=== PATIENT | male | born 1940 | race Caucasian/White ===

== ENCOUNTER 2016-09-26 04:06 | Inpatient (IN) | payer MEDICARE, OTHER ==
[2016-09-25 20:00] VITALS: PULSE 79
[~2016-09-26] VITALS: Ht 175.3 cm; Wt 76.1 kg
[2016-09-26] VITALS (19 sets, daily range): BP systolic 98–150; BP diastolic 50–85; PULSE 79–112; RESP 15–23; TEMP 96–98.6; O2SAT 94–99
[~2016-09-26 04:06] MED LIST: AMBI5TAB PO; CARD4TAB2 PO; GABA300 PO; GLUC1KIT IM; HUMALOG SQ; JANU50TA5 PO; LANTUSP SQ; LORA-474 PO; NEXI40CA PO; NIAC500 PO; STAR60TA PO; TOPR25TA2 PO; TRIL150T PO; ZOCO40TA PO
[2016-09-26] MEDS ORDERED: SODIUM CHLOR 0.9% 1000 ML INJ 1,000 ML IV ONE (04:14)
[2016-09-26] MEDS ORDERED: SODIUM CHLORIDE 0.9% FLUSH 5 ML FLUSH IVF PRN (04:15)
--- NOTE | 2016-09-26 04:20 | PD ---
HPI Chief Complaint: Fall Time Seen by Provider: 04:14 Travel History International Travel<30 days: No Contact w/Intl Traveler<30days: No Traveled to known affect area: No History of Present Illness HPI The patient is a 76-year-old male who presents emergency department via EMS after being found on the ground by his significant other. EMS states they received a call that the patient was found on the side of the bed, lying on the floor, when they arrived. EMS states that they checked an Accu-Chek, the glucometer read "high ", and the patient received 2 L of IV fluids in route to the hospital. The patient apparently has a history of dementia and is currently at baseline according to the patient's significant other, according to EMS report. Upon arrival the patient is a somewhat poor historian, is able to tell me as name and date of , but is unable to tell me his current location. The patient denies any physical complaints. Denies any headache, neck pain, chest, shortness breath, nausea, vomiting, or abdominal pain. PFSH Past Medical History Depression: Yes Cancer: Yes (SKIN) Coronary Artery Disease: Yes Diabetes: Yes Glaucoma: No Hepatitis: No Hiatal Hernia: Yes Hypertension: Yes Thyroid Disease: No Ulcer: Yes Past Surgical History Abdominal Surgery: Yes (COLON RESECTION) Eye Surgery: Yes (CATARACT SX BOTH EYES) Pacemaker: No Social History Alcohol Use: No Tobacco Use: Yes (QUIT LONG AGO) Allergies-Medications (Allergen,Severity, Reaction): Coded Allergies: Contrast Media (Verified Allergy, Severe, DYSPNEA, 09/26/16) Iohexol (OMNIPAQUE) (Verified Allergy, Severe, ANAPHYLAXIS, 09/26/16) Keflex (Verified Allergy, Severe, RASH,ITCHING, 09/26/16) Tobradex (Verified Allergy, Severe, UNKNOWN, 09/26/16) Iodine (Unverified Allergy, Unknown, NOT SURE , 09/26/16) Reported Meds & Prescriptions Reported Meds & Active Scripts Active Reported Niaspan Er (Niacin) 500 Mg Capcr 500 Mg PO DAILY Ambien (Zolpidem Tartrate) 5 Mg Tab 5 Mg PO HS Ativan (Lorazepam) 1 Mg Tab 1 Mg PO BIDPRN Glucagon 1 Mg/Ml Inj 1 Mg IM PRN Janumet 50/500 (Sitagliptin Phosphate/Metformin HCl) 1 Tab Tab 1 Tab PO BIDPRN ADMINISTER WITH MEALS Starlix (Nateglinide) 60 Mg Tab 60 Mg PO BIDPRN Nexium (Esomeprazole) 40 Mg Cap 40 Mg PO DAILY Humalog (Insulin Human Lispro) 100 Units/Ml Inj 12 Units SQ BEFORE MEALS Lantus (Insulin Glargine) 100 Units/Ml Inj 44 Units SQ HS Cardura (Doxazosin Mesylate) 4 Mg Tab 4 Mg PO HS Zocor (Simvastatin) 40 Mg Tab 40 Mg PO HS Neurontin (Gabapentin) 300 Mg Cap 300 Mg PO HS Trileptal (Oxcarbazepine) 150 Mg Tab 150 Mg PO BID Toprol Xl (Metoprolol Succinate) 25 Mg Tabcr 25 Mg PO DAILY Review of Systems ROS Limitations: Clinical Condition, Poor Historian Except as stated in HPI: all other systems reviewed are Neg General / Constitutional: No: Fever HENT: No: Headaches, Neck Pain Cardiovascular: No: Chest Pain or Discomfort Respiratory: No: Shortness of Breath Gastrointestinal: No: Nausea, Vomiting, Abdominal Pain Genitourinary: Positive: Incontinence (incontinence according to EMS which is chronic) Neurologic: No: Headache, Change in Mentation (baseline according to EMS, per the significant other's report) Physical Exam Narrative GENERAL: Awake, alert, 76-year-old male appears his stated age is in no acute respiratory distress. SKIN: Warm and dry. The patient has superficial abrasion over the lateral aspect left elbow. No subcutaneous tissue involvement underneath upon inspection. HEAD: Atraumatic. Normocephalic. EYES: No injection or drainage. ENT: No nasal bleeding or discharge. Dry mucous membranes. No visible dentition. NECK: Trachea midline. No JVD. No tenderness of the cervical vertebrae. CARDIOVASCULAR: Regular, tachycardic with a heart rate of 110. RESPIRATORY: No accessory muscle use. Clear to auscultation. Breath sounds equal bilaterally. GASTROINTESTINAL: Abdomen soft, non-tender, nondistended. No rebound tenderness. MUSCULOSKELETAL: No obvious deformities. No clubbing. No cyanosis. No edema. Moves all 4 extremities. NEUROLOGICAL: Awake and alert. No obvious cranial nerve deficits. Motor grossly within normal limits. Normal speech. Patient follows simple commands, no drift of the upper or lower extremities. Patient is oriented to person and date of , but not current location, month, or year. PSYCHIATRIC: Appears demented. Data Data Last Documented VS Vital Signs Date Time Temp Pulse Resp B/P Pulse Ox O2 Delivery O2 Flow Rate FiO2 09/26/16 05:01 18 97 Room Air 09/26/16 04:14 98.6 109 142/75 Orders Electrocardiogram (09/26/16 04:14) Complete Blood Count With Diff (09/26/16 04:14) Comprehensive Metabolic Panel (09/26/16 04:14) Magnesium (Mg) (09/26/16 04:14) Beta Hydroxybutyrate (Acetone) (09/26/16 04:14) Lactic Acid (09/26/16 04:14) Urinalysis - C+S If Indicated (09/26/16 04:14) Chest, Single Ap (09/26/16 04:14) Blood Gas Venous (Vbg) (09/26/16 04:14) Blood Glucose (09/26/16 04:14) Blood Glucose (09/26/16 05:14) Ecg Monitoring (09/26/16 04:14) Iv Access Insert/Monitor (09/26/16 04:14) Oximetry (09/26/16 04:14) NPO (09/26/16 04:14) Sodium Chloride 0.9% Flush (Ns Flush) (09/26/16 04:15) Sodium Chlor 0.9% 1000 Ml Inj (Ns 1000 M (09/26/16 04:14) Troponin I (09/26/16 04:14) Ct Brain W/O Iv Contrast(Rout) (09/26/16 ) Tetanus/Diphtheria Tox Adult (Tetanus/Di (09/26/16 04:45) Blood Culture (09/26/16 05:02) Cath For Specimen (09/26/16 05:13) Mental Health Assistant / Telemetry DELORIS.Q8H (09/26/16 05:28) ^ Insert Iv (09/26/16 05:28) Diet Npo (09/26/16 Breakfast) Sodium Chlor 0.9% 1000 Ml Inj (Ns 1000 M (09/26/16 05:28) Dext 5%-Nacl 0.9% 1000 Ml Inj (D5w-Ns 10 (09/26/16 05:28) Insulin Human Regular Inj (Novolin R Inj (09/26/16 05:30) Insulin Regular (Iv Infusion) (Novolin R (09/26/16 05:30) Potassium Chlor 40 Meq Premix (Kcl 40 Me (09/26/16 05:30) Potassium Chlor 40 Meq Premix (Kcl 40 Me (09/26/16 05:30) Potassium Chlor 20 Meq Premix (Kcl 20 Me (09/26/16 05:30) Potassium Chlor 20 Meq Premix (Kcl 20 Me (09/26/16 05:30) Potassium Chlor 20 Meq Premix (Kcl 20 Me (09/26/16 05:30) Potassium Chlor 20 Meq Premix (Kcl 20 Me (09/26/16 05:30) Potassium Chlor 20 Meq Premix (Kcl 20 Me (09/26/16 05:30) Potassium Chlor 20 Meq Premix (Kcl 20 Me (09/26/16 05:30) Sodium Bicarbonate 8.4% Inj (Sodium Bica (09/26/16 05:30) Sodium Bicarbonate 8.4% Inj (Sodium Bica (09/26/16 05:30) Sodium Phosphate Inj (Sodium Phosphate I (09/26/16 05:30) Hemoglobin (Hgb) A1c (09/26/16 05:28) Basic Metabolic Panel (Bmp) (09/26/16 10:28) Basic Metabolic Panel (Bmp) (09/26/16 16:28) Basic Metabolic Panel (Bmp) (09/26/16 22:28) Basic Metabolic Panel (Bmp) (09/27/16 04:28) Magnesium (Mg) (09/26/16 10:28) Magnesium (Mg) (09/26/16 16:28) Magnesium (Mg) (09/26/16 22:28) Magnesium (Mg) (09/27/16 04:28) Phosphorus (Po4) (09/26/16 10:28) Phosphorus (Po4) (09/26/16 16:28) Phosphorus (Po4) (09/26/16 22:28) Phosphorus (Po4) (09/27/16 04:28) Beta Hydroxybutyrate (Acetone) (09/26/16 16:28) Beta Hydroxybutyrate (Acetone) (09/27/16 04:28) Labs Laboratory Tests Test 09/26/16 09/26/16 04:25 04:35 White Blood Count 19.7 TH/MM3 Red Blood Count 5.13 MIL/MM3 Hemoglobin 14.1 GM/DL Hematocrit 44.5 % Mean Corpuscular Volume 86.6 FL Mean Corpuscular Hemoglobin 27.4 PG Mean Corpuscular Hemoglobin 31.7 % Concent Red Cell Distribution Width 14.1 % Platelet Count 350 TH/MM3 Mean Platelet Volume 8.5 FL Neutrophils (%) (Auto) 91.7 % Lymphocytes (%) (Auto) 4.2 % Monocytes (%) (Auto) 3.9 % Eosinophils (%) (Auto) 0.0 % Basophils (%) (Auto) 0.2 % Neutrophils # (Auto) 18.1 TH/MM3 Lymphocytes # (Auto) 0.8 TH/MM3 Monocytes # (Auto) 0.8 TH/MM3 Eosinophils # (Auto) 0.0 TH/MM3 Basophils # (Auto) 0.0 TH/MM3 CBC Comment DIFF FINAL Differential Comment Sodium Level 133 MEQ/L Potassium Level 5.2 MEQ/L Chloride Level 97 MEQ/L Carbon Dioxide Level 12.6 MEQ/L Anion Gap 23 MEQ/L Blood Urea Nitrogen 60 MG/DL Creatinine 1.90 MG/DL Estimat Glomerular Filtration 34 ML/MIN Rate Random Glucose 846 MG/DL Lactic Acid Level 5.0 mmol/L Calcium Level 9.2 MG/DL Magnesium Level 2.6 MG/DL Total Bilirubin 0.8 MG/DL Aspartate Amino Transf 52 U/L (AST/SGOT) Alanine Aminotransferase 31 U/L (ALT/SGPT) Alkaline Phosphatase 167 U/L Troponin I 0.03 NG/ML Total Protein 8.2 GM/DL Albumin 3.9 GM/DL B-Hydroxybutyrate 6.40 MMOL/L Blood Gas Puncture Site Blood Gas Patient Temperature 98.6 Venous Blood pH 7.20 Venous Blood Partial Pressure 34 mmHg CO2 Venous Blood Partial Pressure 41 mmHg O2 Venous Blood HCO3 13 mmol/L Venous Blood Oxygen Saturation 61 % Venous Blood Oxygen Content 11.4 Vol % Venous Blood Base Excess -13.9 mmol/L Oxygen Delivery Device ROOM AIR Blood Gas Inspired Oxygen 21 % [facility] Medical Decision Making Medical Screen Exam Complete: Yes Emergency Medical Condition: Yes Medical Record Reviewed: Yes Interpretation(s) EKG reveals sinus tachycardia with a heart rate of 106. Unifocal PVC. VBG reveals a pH is 7.197 with PCO2 33.7, bicarbonate 12.6. Base excess is - 13.9. CT of the head reveals no acute disease Chest x-ray reveals no acute disease Last Impressions Chest X-Ray 09/26/16 0414 Signed Impressions: Service Date/Time: Monday, September 26, 2016 04:25 - CONCLUSION: No acute disease. Jorge Asher MD Head CT 09/26/16 0000 Signed Impressions: Service Date/Time: Monday, September 26, 2016 04:42 - CONCLUSION: No acute disease. Jorge Asher MD Laboratory Tests Test 09/26/16 09/26/16 04:25 04:35 White Blood Count 19.7 TH/MM3 Red Blood Count 5.13 MIL/MM3 Hemoglobin 14.1 GM/DL Hematocrit 44.5 % Mean Corpuscular Volume 86.6 FL Mean Corpuscular Hemoglobin 27.4 PG Mean Corpuscular Hemoglobin 31.7 % Concent Red Cell Distribution Width 14.1 % Platelet Count 350 TH/MM3 Mean Platelet Volume 8.5 FL Neutrophils (%) (Auto) 91.7 % Lymphocytes (%) (Auto) 4.2 % Monocytes (%) (Auto) 3.9 % Eosinophils (%) (Auto) 0.0 % Basophils (%) (Auto) 0.2 % Neutrophils # (Auto) 18.1 TH/MM3 Lymphocytes # (Auto) 0.8 TH/MM3 Monocytes # (Auto) 0.8 TH/MM3 Eosinophils # (Auto) 0.0 TH/MM3 Basophils # (Auto) 0.0 TH/MM3 CBC Comment DIFF FINAL Differential Comment Sodium Level 133 MEQ/L Potassium Level 5.2 MEQ/L Chloride Level 97 MEQ/L Carbon Dioxide Level 12.6 MEQ/L Anion Gap 23 MEQ/L Blood Urea Nitrogen 60 MG/DL Creatinine 1.90 MG/DL Estimat Glomerular Filtration 34 ML/MIN Rate Random Glucose 846 MG/DL Lactic Acid Level 5.0 mmol/L Calcium Level 9.2 MG/DL Magnesium Level 2.6 MG/DL Total Bilirubin 0.8 MG/DL Aspartate Amino Transf 52 U/L (AST/SGOT) Alanine Aminotransferase 31 U/L (ALT/SGPT) Alkaline Phosphatase 167 U/L Troponin I 0.03 NG/ML Total Protein 8.2 GM/DL Albumin 3.9 GM/DL B-Hydroxybutyrate 6.40 MMOL/L Blood Gas Puncture Site Blood Gas Patient Temperature 98.6 Venous Blood pH 7.20 Venous Blood Partial Pressure 34 mmHg CO2 Venous Blood Partial Pressure 41 mmHg O2 Venous Blood HCO3 13 mmol/L Venous Blood Oxygen Saturation 61 % Venous Blood Oxygen Content 11.4 Vol % Venous Blood Base Excess -13.9 mmol/L Oxygen Delivery Device ROOM AIR Blood Gas Inspired Oxygen 21 % Differential Diagnosis Differential diagnoses includes dementia, delirium, inability care for self, dehydration, hyperglycemia, DKA, electrolyte abnormality, subdural hemorrhage, pneumonia, UTI, STEMI. Narrative Course IV was established, labs are drawn and sent, and the patient was placed on cardiac telemetry monitoring and continuous pulse oximetry monitoring. The patient received 2 L of IV fluids by EMS prior to arrival, therefore, was administered 1 more liter of IV fluids while placed on cardiac telemetry monitoring. Bedside Accu-Chek was obtained. VBG was sent to lab. CT of the brain was ordered to rule out subdural hemorrhage. Chest x-ray was obtained. VBG reveals acidosis with a pH is 7.197, PCO2 33.7, and bicarbonate 12.6, consistent with metabolic acidosis. Lactic acid was elevated at 5.0. Therefore , blood cultures were sent to lab. Patient's anion gap is elevated at 23, glucose was elevated greater than 800, beta hydroxy was positive greater than 6, patient has an eye gap, acidosis, hyperglycemia, consistent with DKA. The patient initially was given 2 L of IV fluids and placed on maintenance fluids. The patient was given an insulin bolus of 8 units, he weighs 82 kg, and then placed on an insulin drip. The patient will be admitted to the intensive care unit for diabetic ketoacidosis, acute renal failure, and dehydration. I had a discussion with the patient's significant other who states the patient is a DNR. She also states the patient has been noncompliant with his insulin since July. Critical Care Narrative Aggregate critical care time was 35 minutes. Time to perform other separately billable procedures was not included in the critical care time. My time did not include minutes spent treating any other patients simultaneously or on activities that did not directly contribute to the patient's treatment. The services I provided to this patient were to treat and/or prevent clinically significant deterioration that could result in: Acute renal failure, arrhythmia , dehydration, diabetic coma, . I provided critical care services requiring my management, as noted below: Chart data review, documentation time, medication orders and management, vital sign assessments/reviewing monitor data, ordering and reviewing lab tests, ordering and interpreting/reviewing x-rays and diagnostic studies, care of the patient and discussion of the patient with the admitting physicians. Sepsis Criteria SIRS Criteria (2 or more): Heart rate over 90, WBC > 66075, < 4000 or > 10% bands Physician Communication Physician Communication I discussed the patient with the on-call cloth stretcher, Dr. Seth, who agrees with admission. Diagnosis Primary Impression: Diabetic ketoacidosis Qualified Code: E13.10 - Diabetic ketoacidosis without coma associated with other specified diabetes mellitus Additional Impressions: Lactic acidosis Acute renal failure Qualified Code: N17.9 - Acute renal failure, unspecified acute renal failure type Dehydration Condition: Stable Thai Jolly MD Sep 26, 2016 04:20
[2016-09-26 04:33] LABS: AUTOMATED NEUTROPHIL # 18.1 TH/MM3 (1.8-7.7); BASOPHIL % 0.2 % (0.0-2.0); HEMATOCRIT 44.5 % (39.0-51.0); HEMO FLAGS DIFF FINAL; LYMPH % 4.2 % (9.0-44.0); LYMPHOCYTE # 0.8 TH/MM3 (1.0-4.8); MEAN CELL VOLUME 86.6 FL (80.0-100.0); MEAN CORPUSCULAR HEMOGLOBIN 27.4 PG (27.0-34.0); MEAN CORPUSCULAR HGB CONC 31.7 % (32.0-36.0); MONO % 3.9 % (0.0-8.0); NEUT % 91.7 % (16.0-70.0); PLATELET COUNT 350 TH/MM3 (150-450); RED BLOOD COUNT 5.13 MIL/MM3 (4.50-5.90); RED CELL DISTRIBUTION WIDTH 14.1 % (11.6-17.2); WHITE BLOOD COUNT 19.7 TH/MM3 (4.0-11.0)
[2016-09-26] MEDS ORDERED: TETANUS/DIPHTHERIA TOXOID ADULT 0.5 ML VIAL IM ONE (04:45)
[2016-09-26 04:55] LABS: BLOOD GAS VENOUS BASE EXCESS -13.9 mmol/L (-2-2); BLOOD GAS VENOUS HCO3 13 mmol/L (22-26); BLOOD GAS VENOUS O2 CONTENT 11.4 Vol % (9.0-17.0); BLOOD GAS VENOUS O2 HGB SAT 61 % (70-76); BLOOD GAS VENOUS PCO2 34 mmHg (44-48); BLOOD GAS VENOUS PO2 41 mmHg (35-40); TEMP CORR TO 98.6
[2016-09-26 04:55] LABS: ANION GAP 23 MEQ/L (5-15)
[2016-09-26 04:56] LABS: FIO2 21 %; OXYGEN DEVICE ROOM AIR; STAT YES
--- NOTE | 2016-09-26 05:07 | RADRPT ---
EXAM DATE/TIME: 09/26/2016 04:25 [facility] COMPARISON: No previous studies available for comparison. INDICATIONS : Shortness of breath. MEDICAL HISTORY : Hypertension. SURGICAL HISTORY : None. ENCOUNTER: Initial ACUITY: 1 day PAIN SCORE: Non-responsive. LOCATION: Bilateral chest FINDINGS: A single view of the chest demonstrates the lungs to be symmetrically aerated without evidence of mas s, infiltrate or effusion. The cardiomediastinal contours are unremarkable. Osseous structures demo nstrate left shoulder arthroplasty. CONCLUSION: No acute disease. Jorge Asher MD on September 26, 2016 at 5:06 Board Certified Radiologist. This report was verified electronically.
--- NOTE | 2016-09-26 05:07 | RADRPT ---
EXAM DATE/TIME: 09/26/2016 04:42 [facility] COMPARISON: No previous studies available for comparison. INDICATIONS : Fall RADIATION DOSE: 56.35 CTDIvol (mGy) MEDICAL HISTORY : Diabetes mellitus type 2. Hypertension. Cardiovascular disease SURGICAL HISTORY : Colon resection. ENCOUNTER: Initial ACUITY: 1 day PAIN SCALE: 3/10 LOCATION: cranial TECHNIQUE: Multiple contiguous axial images were obtained of the head. Using automated exposure control and adj ustment of the mA and/or kV according to patient size, radiation dose was kept as low as reasonably a chievable to obtain optimal diagnostic quality images. FINDINGS: There is atrophy and patchy periventricular white matter disease noted. Prominent calcifications of t he distal vertebral arteries and internal carotid arteries noted. No fractures. No hemorrhage, infarc t, or mass. CONCLUSION: No acute disease. Jorge Asher MD on September 26, 2016 at 5:05 Board Certified Radiologist. This report was verified electronically.
[2016-09-26 05:10] LABS: ALKALINE PHOSPHATASE 167 U/L (45-117); ALT (GPT) 31 U/L (12-78); AST (GOT) 52 U/L (15-37); BICARBONATE 12.6 MEQ/L (21.0-32.0); BLOOD UREA NITROGEN 60 MG/DL (7-18); CHLORIDE 97 MEQ/L (98-107); GLOMERULAR FILTRATION RATE 34 ML/MIN (>89); MAGNESIUM 2.6 MG/DL (1.5-2.5); POTASSIUM 5.2 MEQ/L (3.5-5.1); SODIUM (NA) 133 MEQ/L (136-145); TOTAL BILIRUBIN ADULT 0.8 MG/DL (0.2-1.0)
[2016-09-26] MEDS ORDERED: SODIUM CHLOR 0.9% 1000 ML INJ 1,000 ML IV SCH (05:28)
[2016-09-26] MEDS ORDERED: DEXT 5%-NACL 0.9% 1000 ML INJ 1,000 ML IV SCH (05:28)
[2016-09-26] MEDS ORDERED: POTASSIUM CHLOR 20 MEQ PREMIX 100 ML IV PRN ×13 (05:30→17:45)
[2016-09-26] MEDS ORDERED: INSULIN REGULAR (IV INFUSION) 100 UNITS in SODIUM CHLORIDE 0.9% INJ 99 ML IV SCH ×2 (05:30→06:00)
[2016-09-26] MEDS ORDERED: POTASSIUM CHLOR 40 MEQ PREMIX 100 ML IV PRN ×5 (05:30→17:45)
[2016-09-26] MEDS ORDERED: INSULIN HUMAN REGULAR 1,000 UNITS/10 ML VIAL IV PUSH ONE (05:30)
[2016-09-26] MEDS ORDERED: SODIUM PHOSPHATE INJ 15 MMOL in SODIUM CHLORIDE 0.9% INJ 100 ML IV PRN ×2 (05:30→06:00)
[2016-09-26] MEDS ORDERED: SODIUM BICARBONATE 8.4% SOLN 50 MEQ/50 ML VIAL IV PRN ×4 (05:30→06:00)
[2016-09-26 05:38] LABS: BACTERIA, URINE RARE /hpf; BLOOD, URINE MOD (NEG); COMMENT (UR) CULT NOT INDICATED; CULTURE IF INDICATED CULT NOT INDICATED; GLUCOSE,URINE 1000 mg/dL (NEG); KETONE, URINE 40 mg/dL (NEG); MUCUS URINE FEW /lpf (OCC); NITRITE,URINE NEG (NEG); SQUAMOUS EPITHELIAL CELL URINE <1 /hpf (0-5); URINE COLOR LIGHT-YELLOW (YELLW/STRAW)
[2016-09-26] MEDS: DEXT 5%-NACL 0.9% 1000 ML INJ 1,000 ML IV SCH ×3 (05:48→18:00)
[2016-09-26] MEDS: SODIUM CHLOR 0.9% 1000 ML INJ 1,000 ML IV SCH ×2 (05:48→10:09)
[2016-09-26] MEDS ORDERED: MISCELLANEOUS NURSING INFORMATION XX SCH (06:00)
[2016-09-26] MEDS ORDERED: ONDANSETRON HCL 4 MG/2 ML VIAL IV PRN (06:00)
[2016-09-26] MEDS ORDERED: RESP: ALBUTEROL 2.5 MG/IPRATROPIUM 0.5 MG NEB (PRN) INH (06:00)
[2016-09-26] MEDS ORDERED: SODIUM CHLORIDE 0.9% FLUSH 5 ML FLUSH IV FLUSH PRN (06:00)
[2016-09-26] MEDS ORDERED: ACETAMINOPHEN 325 MG TAB PO PRN (06:00)
[2016-09-26] MEDS ORDERED: CHLORHEXIDINE GLUCONATE 2 % 1 PACK (2 CLOTHS) TOP PRN (06:00)
[2016-09-26] MEDS ORDERED: METOCLOPRAMIDE HCL 10 MG/2 ML VIAL IV PRN (06:00)
--- NOTE | 2016-09-26 06:00 | HHI.HP ---
HPI Service Critical Care Medicine Primary Care Physician Félix Weaver M.D. Admission Diagnosis diabetic ketoacidosis, acute renal failure, lactic acidosis, dehydra Diagnosis: Travel History International Travel<30 Days: No Contact w/Intl Traveler <30 Da: No Traveled to Known Affected Are: No History of Present Illness 76-year-old male who presents emergency department via EMS after being found on the ground by his significant other. Per EMS the patient was found on the side of the bed, lying on the floor, when they arrived. His Accu- Chek, the glucometer read "high ", and the patient received 2 L of IV fluids in route to the hospital. The patient apparently has a history of mild dementia and is currently at baseline according to the patient's significant other, who is at the bedside. She states that he stopped taking all his insulins about a month ago. Review of Systems Constitutional: DENIES: Diaphoretic episodes, Fatigue, Fever, Weight gain, Weight loss, Chills, Dizziness, Change in appetite, Night Sweats Endocrine: DENIES: Heat/cold intolerance, Polydipsia, Polyuria, Polyphagia Eyes: DENIES: Blurred vision, Diplopia, Eye inflammation, Eye pain, Vision loss , Photosensitivity, Double Vision Ears, nose, mouth, throat: DENIES: Tinnitus, Hearing loss, Vertigo, Nasal discharge, Oral lesions, Throat pain, Hoarseness, Ear Pain, Running Nose, Epistaxis, Sinus Pain, Toothache, Odynophagia Respiratory: DENIES: Apneas, Cough, Snoring, Wheezing, Hemoptysis, Sputum production, Shortness of breath Cardiovascular: DENIES: Chest pain, Palpitations, Syncope, Dyspnea on Exertion , PND, Lower Extremity Edema, Orthopnea, Claudication Gastrointestinal: DENIES: Abdominal pain, Black stools, Bloody stools, Constipation, Diarrhea, Nausea, Vomiting, Difficulty Swallowing, Anorexia Genitourinary: DENIES: Sexual dysfunction, Urinary frequency, Urinary incontinence, Urgency, Hematuria, Dysuria, Nocturia, Penile Discharge, Testicular Pain, Testicular Swelling Musculoskeletal: DENIES: Joint pain, Muscle aches, Stiffness, Joint Swelling, Back pain, Neck pain Integumentary: DENIES: Abnormal pigmentation, Nail changes, Pruritus, Rash Hematologic/lymphatic: DENIES: Bruising, Lymphadenopathy Immunologic/allergic: DENIES: Eczema, Urticaria Neurologic: DENIES: Abnormal gait, Headache, Localized weakness, Paresthesias, Seizures, Speech Problems, Tremor, Poor Balance Psychiatric: DENIES: Anxiety, Confusion, Mood changes, Depression, Hallucinations, Agitation, Suicidal Ideation, Homicidal Ideation, Delusions Past Family Social History Allergies: Coded Allergies: Contrast Media (Verified Allergy, Severe, DYSPNEA, 09/26/16) Iohexol (OMNIPAQUE) (Verified Allergy, Severe, ANAPHYLAXIS, 09/26/16) Keflex (Verified Allergy, Severe, RASH,ITCHING, 09/26/16) Tobradex (Verified Allergy, Severe, UNKNOWN, 09/26/16) Iodine (Unverified Allergy, Unknown, NOT SURE , 09/26/16) Past Medical History Anemia arthritis colon polyps Diabetes type 2 Diverticulosis Glaucoma Hypercholesterol Hypertension Overactive bladder GERD Peripheral neuropathy Inflammatory bowel disease Past Surgical History Appendectomy bilateral breast lumps removed Cataracts Cholecystectomy Tonsillectomy Total right knee arthroplasty Colonoscopy in 2011 Reported Medications Reported Meds & Active Scripts Active Reported Niaspan Er (Niacin) 500 Mg Capcr 500 Mg PO DAILY Ambien (Zolpidem Tartrate) 5 Mg Tab 5 Mg PO HS Ativan (Lorazepam) 1 Mg Tab 1 Mg PO BIDPRN Glucagon 1 Mg/Ml Inj 1 Mg IM PRN Janumet 50/500 (Sitagliptin Phosphate/Metformin HCl) 1 Tab Tab 1 Tab PO BIDPRN ADMINISTER WITH MEALS Starlix (Nateglinide) 60 Mg Tab 60 Mg PO BIDPRN Nexium (Esomeprazole) 40 Mg Cap 40 Mg PO DAILY Humalog (Insulin Human Lispro) 100 Units/Ml Inj 12 Units SQ BEFORE MEALS Lantus (Insulin Glargine) 100 Units/Ml Inj 44 Units SQ HS Cardura (Doxazosin Mesylate) 4 Mg Tab 4 Mg PO HS Zocor (Simvastatin) 40 Mg Tab 40 Mg PO HS Neurontin (Gabapentin) 300 Mg Cap 300 Mg PO HS Trileptal (Oxcarbazepine) 150 Mg Tab 150 Mg PO BID Toprol Xl (Metoprolol Succinate) 25 Mg Tabcr 25 Mg PO DAILY Active Ordered Medications Current Medications Medications (Trade) Dose Ordered Sig/Zahraa Route PRN Reason Start Time Stop Time Status Last Admin Dose Admin IV Flush 2 ml 2 ml UNSCH PRN IVF FLUSH AFTER USING IV ACCESS 09/26/16 04:15 09/26/16 04:35 Sodium Chloride 1,000 ml @ 250 mls/hr Q4H IV 09/26/16 05:28 09/26/16 05:49 Dextrose/Sodium Chloride 1,000 ml @ 200 mls/hr Q5H IV 09/26/16 05:28 Insulin Human Regular 100 units/ Sodium Chloride 100 ml @ 0 mls/hr TITRATE IV 09/26/16 05:30 Potassium Chloride 100 ml @ 100 mls/hr Q1H PRN IV SEE LABEL COMMENTS 09/26/16 05:30 Potassium Chloride 100 ml @ 50 mls/hr Q2H PRN IV SEE LABEL COMMENTS 09/26/16 05:30 Potassium Chloride 100 ml @ 100 mls/hr Q1H PRN IV SEE LABEL COMMENTS 09/26/16 05:30 Potassium Chloride 100 ml @ 100 mls/hr Q1H PRN IV SEE LABEL COMMENTS 09/26/16 05:30 Potassium Chloride 100 ml @ 50 mls/hr Q2H PRN IV SEE LABEL COMMENTS 09/26/16 05:30 Potassium Chloride 100 ml @ 50 mls/hr Q2H PRN IV SEE LABEL COMMENTS 09/26/16 05:30 Potassium Chloride 100 ml @ 50 mls/hr Q2H PRN IV SEE LABEL COMMENTS 09/26/16 05:30 Potassium Chloride (KCl 20 Meq Premix Inj) 100 ml @ 50 mls/hr Q2H PRN IV SEE LABEL COMMENTS 09/26/16 05:30 Sodium Bicarbonate (Sodium Bicarbonate 8.4% Inj) 100 meq UNSCH PRN IV SEE LABEL COMMENTS 09/26/16 05:30 Sodium Bicarbonate 50 meq 50 meq UNSCH PRN IV SEE LABEL COMMENTS 09/26/16 05:30 Sodium Phosphate/ Sodium Chloride (Sodium Phosphate Inj/NS Inj) 105 ml @ 25 mls/hr UNSCH PRN IV SEE LABEL COMMENTS 09/26/16 05:30 Family History Noncontributory Social History Negative 3 Physical Exam Vital Signs Vital Signs Date Time Temp Pulse Resp B/P Pulse Ox O2 Delivery O2 Flow Rate FiO2 09/26/16 05:01 18 97 Room Air 09/26/16 04:14 98.6 109 18 142/75 95 Physical Exam GENERAL: Well-nourished, well-developed patient. Altered mental status SKIN: Warm and dry. HEAD: Normocephalic. EYES: No scleral icterus. No injection or drainage. NECK: Supple, trachea midline. No JVD or lymphadenopathy. CARDIOVASCULAR: Regular rate and rhythm without murmurs, gallops, or rubs. RESPIRATORY: Breath sounds equal bilaterally. No accessory muscle use. GASTROINTESTINAL: Abdomen soft, non-tender, nondistended. MUSCULOSKELETAL: No cyanosis, or edema. BACK: Nontender without obvious deformity. No CVA tenderness. Laboratory Laboratory Tests Test 09/26/16 09/26/16 09/26/16 04:25 04:35 05:15 White Blood Count 19.7 Red Blood Count 5.13 Hemoglobin 14.1 Hematocrit 44.5 Mean Corpuscular Volume 86.6 Mean Corpuscular Hemoglobin 27.4 Mean Corpuscular Hemoglobin 31.7 Concent Red Cell Distribution Width 14.1 Platelet Count 350 Mean Platelet Volume 8.5 Neutrophils (%) (Auto) 91.7 Lymphocytes (%) (Auto) 4.2 Monocytes (%) (Auto) 3.9 Eosinophils (%) (Auto) 0.0 Basophils (%) (Auto) 0.2 Neutrophils # (Auto) 18.1 Lymphocytes # (Auto) 0.8 Monocytes # (Auto) 0.8 Eosinophils # (Auto) 0.0 Basophils # (Auto) 0.0 CBC Comment DIFF FINAL Differential Comment Sodium Level 133 Potassium Level 5.2 Chloride Level 97 Carbon Dioxide Level 12.6 Anion Gap 23 Blood Urea Nitrogen 60 Creatinine 1.90 Estimat Glomerular Filtration 34 Rate Random Glucose 846 Lactic Acid Level 5.0 Calcium Level 9.2 Magnesium Level 2.6 Total Bilirubin 0.8 Aspartate Amino Transf 52 (AST/SGOT) Alanine Aminotransferase 31 (ALT/SGPT) Alkaline Phosphatase 167 Troponin I 0.03 Total Protein 8.2 Albumin 3.9 B-Hydroxybutyrate 6.40 Blood Gas Puncture Site Blood Gas Patient Temperature 98.6 Venous Blood pH 7.20 Venous Blood Partial Pressure 34 CO2 Venous Blood Partial Pressure 41 O2 Venous Blood HCO3 13 Venous Blood Oxygen Saturation 61 Venous Blood Oxygen Content 11.4 Venous Blood Base Excess -13.9 Oxygen Delivery Device ROOM AIR Blood Gas Inspired Oxygen 21 Urine Color LIGHT-YELLOW Urine Turbidity CLEAR Urine pH 5.[address] [place] 1.018 Urine Protein TRACE Urine Glucose (UA) 1000 Urine Ketones 40 Urine Occult Blood MOD Urine Nitrite NEG Urine Bilirubin NEG Urine Urobilinogen LESS THAN 2.0 Urine Leukocyte Esterase MOD Urine RBC 2 Urine WBC 3 Urine Squamous Epithelial <1 Cells Urine Bacteria RARE Urine Mucus FEW Microscopic Urinalysis Comment CULT NOT INDICATED Date/Time Procedure Status Source Growth 09/26/16 04:32 Aerobic Blood Culture Received Blood Peripheral Pending 09/26/16 04:32 Anaerobic Blood Culture Received Blood Peripheral Pending Result Diagram: 09/26/1642409/26/16424 Assessment and Plan Problem List: (1) Dehydration ICD Code: E86.0 Status: Acute (2) Lactic acidosis ICD Code: E87.2 Status: Acute (3) Diabetic ketoacidosis ICD Code: E13.10 Status: Acute (4) Acute renal failure ICD Code: N17.9 Status: Acute Assessment and Plan Altered mental status - Toxic metabolic encephalopathy - Treat underlying condition such as DKA - Supportive care - Head CT negative Anemia - Chronic disease - Monitor H&H - Transfuse for hemoglobin less than 7 DKA / Diabetes type 2 - ICU DKA protocol - Insulin - IV fluid hydration Hypercholesterol - Simvastatin Hypertension - Metoprolol Toprol-XL Overactive bladder - Ma catheter for strict I's and O's GERD - Pepcid IV Peripheral neuropathy - Gabapentin Critical Care: The total critical care time was 35 minutes. Time to perform other separately billable procedures was not included in the critical care time. Problem Qualifiers (1) Diabetic ketoacidosis: Qualified Code: E13.10 - Diabetic ketoacidosis without coma associated with other specified diabetes mellitus (2) Acute renal failure: Qualified Code: N17.9 - Acute renal failure, unspecified acute renal failure type Marko Seth MD Sep 26, 2016 06:00
[2016-09-26] MEDS ORDERED: LORazepam 1 MG TAB PO PRN (06:15)
[2016-09-26] MEDS: HEPARIN SODIUM - SQ 10,000 UNITS/ML VIAL SQ SCH ×3 (06:53→23:46)
[2016-09-26] MEDS ORDERED: Vancomycin Consult Pharmacy 1 EA OTHER SCH (09:15)
[2016-09-26] MEDS ORDERED: VANCOMYCIN INJ 1,250 MG in SODIUM CHLOR 0.9% 250 ML INJ 250 ML IV ONE (09:15)
[2016-09-26] MEDS: FAMOTIDINE 20 MG/2 ML VIAL IV PUSH SCH ×2 (10:07→23:44)
[2016-09-26] MEDS: SODIUM CHLORIDE 0.9% FLUSH 5 ML FLUSH IV FLUSH SCH (10:07)
[2016-09-26] MEDS: DOCUSATE SODIUM 100 MG CAP PO SCH ×2 (10:08→23:46)
[2016-09-26] MEDS: METOPROLOL SUCCINATE 25 MG EXTENDED RELEASE TAB PO SCH (10:08)
[2016-09-26] MEDS ORDERED: VANCOMYCIN INJ 1,750 MG in SODIUM CHLORID 0.9% 500 ML INJ 500 ML IV ONE (11:00)
[2016-09-26] MEDS: PIPERACIL-TAZO 3.375 GM PREMIX 50 ML IV SCH ×2 (11:00→18:14)
--- NOTE | 2016-09-26 11:14 | PD.CONS ---
Provisional Diagnosis Admission Date Sep 26, 2016 at 05:42 Baldwin I. Delirium due to underlying medical conditions, bipolar disorder, R/O dementia Baldwin II. Deferred Baldwin III. HTN, DM, GERD, arthritis, diverticulitis, glaucoma, overactive bladder, DKA Baldwin IV. Poor family support Baldwin V. 50 History of Present Illness Service Psychiatry Consult Requested By Primary Care Physician Félix Weaver M.D. HPI The patient is a 76-year-old man, domiciled with significant other in [place], retired, with psychiatric history of bipolar disorder, not psychiatric hospitalizations, no previous suicidal attempts, history with Effexor 150 mg daily and trazodone 100 mg at bedtime, medical history of hypertension, diabetes, overactive bladder, arthritis, GERD, glaucoma, diverticulitis, who presents emergency department via EMS after being found on the ground by his significant other. Per EMS the patient was found on the side of the bed, lying on the floor, when they arrived. His Accu-Chek, the glucometer read "high ", and the patient received 2 L of IV fluids in route to the hospital. The patient apparently has a history of mild dementia and is currently at baseline according to the patient's significant other, who is at the bedside. She states that he stopped taking all his insulins about a month ago. Patient is then was with DKA, JHONATAN, labs reviewed. Patient consulted a psychiatrist due to self-neglect and noncompliance with medication. Patient was seen for psychiatric evaluation in the general ER. Patient was found in his room, irritable, a little bit agitated, requesting to drink water repeatedly. Patient states that the reason he came to the hospital "he's become I need to drink water, I need to drink water". Patient denies pain, distress, he denies depressive symptoms, he denies suicidal or homicidal ideation, he denies visual and auditory hallucinations. Patient is disoriented , he doesn't know where he is, he doesn't know the date, patient is non- cooperative to complete a full cognitive assessment. Collateral information from his significant other Mitzy Howard, [phone], he says that they have been living together for about 20 years, but they are not . She she states that the patient hasn't been taking his medication for about a month, he has been more forgetful, more dependent, and unable to take care of himself progressively in the last 6 months. She says that for about 2 years his memory has been declining little by little to the point that he is right now. She explains that at the same time she is also getting more and she has her own problems and is becoming very difficult to take care of him. She says that after this hospitalization it would be convenient to send the patient to a half-way where he can get the medical help that he deserves. She clarifies that the reason he may not be taking his medication is because he simply doesn't remember. She clarifies that he has psychiatric history of bipolar disorder, but no previous hospitalizations, no previous suicidal attempts, and he takes trazodone 100 mg and Effexor 150 mg, but he hasn't been taking this medication for a long time now. Review of Systems Constitutional: DENIES: Diaphoretic episodes, Fatigue, Fever, Weight gain, Weight loss, Chills, Dizziness, Change in appetite, Night Sweats Endocrine: DENIES: Heat/cold intolerance, Polydipsia, Polyuria, Polyphagia Eyes: DENIES: Blurred vision, Diplopia, Eye inflammation, Eye pain, Vision loss , Photosensitivity, Double Vision Ears, nose, mouth, throat: DENIES: Tinnitus, Hearing loss, Vertigo, Nasal discharge, Oral lesions, Throat pain, Hoarseness, Ear Pain, Running Nose, Epistaxis, Sinus Pain, Toothache, Odynophagia Respiratory: DENIES: Apneas, Cough, Snoring, Wheezing, Hemoptysis, Sputum production, Shortness of breath Cardiovascular: DENIES: Chest pain, Palpitations, Syncope, Dyspnea on Exertion , PND, Lower Extremity Edema, Orthopnea, Claudication Gastrointestinal: DENIES: Abdominal pain, Black stools, Bloody stools, Constipation, Diarrhea, Nausea, Vomiting, Difficulty Swallowing, Anorexia Genitourinary: DENIES: Sexual dysfunction, Urinary frequency, Urinary incontinence, Urgency, Hematuria, Dysuria, Nocturia, Penile Discharge, Testicular Pain, Testicular Swelling Musculoskeletal: DENIES: Joint pain, Muscle aches, Stiffness, Joint Swelling, Back pain, Neck pain Integumentary: DENIES: Abnormal pigmentation, Nail changes, Pruritus, Rash Neurologic: DENIES: Abnormal gait, Headache, Localized weakness, Paresthesias, Seizures, Speech Problems, Tremor, Poor Balance Psychiatric: COMPLAINS OF: Confusion, Agitation, DENIES: Anxiety, Mood changes , Depression, Hallucinations, Suicidal Ideation, Homicidal Ideation, Delusions Past Family Social History Coded Allergies: Contrast Media (Verified Allergy, Severe, DYSPNEA, 09/26/16) Iohexol (OMNIPAQUE) (Verified Allergy, Severe, ANAPHYLAXIS, 09/26/16) Keflex (Verified Allergy, Severe, RASH,ITCHING, 09/26/16) Tobradex (Verified Allergy, Severe, UNKNOWN, 09/26/16) Iodine (Unverified Allergy, Unknown, NOT SURE , 09/26/16) Unable to Obtain Active Prescriptions or Reported Meds Current Medications Medications (Trade) Dose Ordered Sig/Zahraa Route Start Time Stop Time Status Last Admin Sodium Chloride 1,000 ml @ 250 mls/hr Q4H IV 09/26/16 05:48 09/26/16 10:09 Dextrose/Sodium Chloride 1,000 ml @ 200 mls/hr Q5H IV 09/26/16 05:48 Insulin Human Regular 100 units/ Sodium Chloride 100 ml @ 0 mls/hr TITRATE IV 09/26/16 06:00 Potassium Chloride 100 ml @ 100 mls/hr Q1H PRN IV 09/26/16 06:00 Potassium Chloride 100 ml @ 50 mls/hr Q2H PRN IV 09/26/16 06:00 Potassium Chloride 100 ml @ 100 mls/hr Q1H PRN IV 09/26/16 06:00 Potassium Chloride 100 ml @ 100 mls/hr Q1H PRN IV 09/26/16 06:00 Potassium Chloride 100 ml @ 50 mls/hr Q2H PRN IV 09/26/16 06:00 Potassium Chloride 100 ml @ 50 mls/hr Q2H PRN IV 09/26/16 06:00 Potassium Chloride 100 ml @ 50 mls/hr Q2H PRN IV 09/26/16 06:00 (KCl 20 Meq Premix Inj) 100 ml @ 50 mls/hr Q2H PRN IV 09/26/16 06:00 (Sodium Bicarbonate 8.4% Inj) 100 meq UNSCH PRN IV 09/26/16 06:00 Sodium Bicarbonate 50 meq 50 meq UNSCH PRN IV 09/26/16 06:00 (Sodium Phosphate Inj/NS Inj) 105 ml @ 25 mls/hr UNSCH PRN IV 09/26/16 06:00 Miscellaneous Information 1 [id number] XX 09/26/16 06:00 (Chlorhexidine 2% Cloth) 3 pack Taper DAILY@04 TOP 09/27/16 04:00 09/23/17 03:59 (Chlorhexidine 2% Cloth) 3 pack UNSCH PRN TOP 09/26/16 06:00 (NS Flush) 2 ml UNSCH PRN IV FLUSH 09/26/16 06:00 (NS Flush) 2 ml BID IV FLUSH 09/26/16 09:00 09/26/16 10:07 (Tylenol) 650 mg Q6H PRN PO 09/26/16 06:00 (Pepcid Inj) 10 mg Q12HR IV PUSH 09/26/16 09:00 09/26/16 10:07 (Zofran Inj) 4 mg Q6H PRN IV 09/26/16 06:00 (Reglan Inj) 5 mg Q6H PRN IV 09/26/16 06:00 (Colace) 100 mg BID PO 09/26/16 09:00 09/26/16 10:08 (Heparin Inj) 5,000 units Q8H SQ 09/26/16 06:00 09/26/16 06:53 (Cardura) 4 mg HS PO 09/26/16 21:00 (Toprol Xl) 25 mg DAILY PO 09/26/16 09:00 09/26/16 10:08 (Slo-Niacin) 500 mg DAILY PO 09/26/16 09:00 Oxcarbazepine 150 mg 150 mg BID PO 09/26/16 09:00 Pharmacy Profile Note 0 ml @ 0 mls/hr UNSCH OTHER 09/26/16 09:15 Piperacillin Sod/ Tazobactam Sod 50 ml @ 100 mls/hr Q8H IV 09/26/16 10:00 (Vancomycin Inj/ NS 500 ml Inj) 517.5 ml @ 250 mls/hr ONCE ONCE IV 09/26/16 11:00 09/26/16 13:04 Family History Patient denies, significant other also denies Social History The patient was born and raised in [place], he lives in [place] with significant other, he is retired, he used to work for the government, he has 1 year of college education. Physical Exam Vital Signs Vital Signs Date Time Temp Pulse Resp B/P Pulse Ox O2 Delivery O2 Flow Rate FiO2 09/26/16 08:11 107 18 141/63 98 Room Air 09/26/16 07:00 96.0 Mental Status Examination Appearance man, age appearing, [facility], good hygiene, cooperation is very limited, agitated, repetitive Speech: Hesitant Orientation: Person Memory: Impaired (describe) Thought Process: Loose Association Thought Content: Paranoid (none), Obsessions (nonobserved) Hallucination Type: None Attention and Concentration: Easily Distracted Suicidal Ideation: No Previous Suicide Attempts: No Homicidal Ideation: No Previous Homicide Attempts: No Insight: Poor Judgement: Impulsive Affect: Irritable Mood: Angry Motor Activity: Normal gait Assessment & Plan Problem List: (1) Delirium due to another medical condition Assessment & Plan: The patient is a 76-year-old man, domiciled with significant other in [place], retired, with psychiatric history of bipolar disorder, not psychiatric hospitalizations, no previous suicidal attempts, history with Effexor 150 mg daily and trazodone 100 mg at bedtime, medical history of hypertension, diabetes, overactive bladder, arthritis, GERD, glaucoma , diverticulitis, who presents emergency department via EMS after being found on the ground by his significant other. Patient was found to have significant hyperglycemia, DKA, JHONATAN in the context of noncompliance with medications. Consulted to psychiatry due to self-neglect and no compliance with medications. On psychiatric evaluation patient is confused, non-cooperative with the evaluation, disorganized, with visible fluctuation of consciousness and attention deficit which is most probably consistent with delirium due to underlying medical condition. After getting collateral information from his significant other is highly probable the patient also has an underlying dementia has been progressing in the last months to the point the patient is now unable to function by himself and this could be the reason the patient hasn' t been taking his medications. Since patient has history of bipolar disorder, depressive type, we will restart his outpatient medications at a lower dose, Effexor 37.5 mg and trazodone 50 mg, will add Seroquel 25 mg twice a day to help with confusion, delirium, agitation, sleep. He does not meet criteria for psychiatric admission at this moment. We will follow-up. ICD Code: F05 Assessment & Plan Estimated LOS: Clemente Preciado MD Sep 26, 2016 11:13
[2016-09-26] MEDS: NIACIN 500 MG EXTENDED RELEASE TAB PO SCH (11:17)
[2016-09-26] MEDS: OXcarbazepine 150 MG TAB PO SCH ×2 (11:17→23:46)
[2016-09-26 12:13] LABS: ANION GAP 15 MEQ/L (5-15); BICARBONATE 20.3 MEQ/L (21.0-32.0); BLOOD UREA NITROGEN 46 MG/DL (7-18); CHLORIDE 108 MEQ/L (98-107); GLOMERULAR FILTRATION RATE 46 ML/MIN (>89); MAGNESIUM 2.5 MG/DL (1.5-2.5); POTASSIUM 3.8 MEQ/L (3.5-5.1); SODIUM (NA) 143 MEQ/L (136-145)
[2016-09-26] MEDS ORDERED: N7030SS SQ (12:13)
[2016-09-26] MEDS ORDERED: VIST25CA PO (12:14)
[2016-09-26] MEDS ORDERED: VENL75CA44 PO (12:14)
[2016-09-26] MEDS ORDERED: TRAM50TA PO (12:15)
[2016-09-26] MEDS ORDERED: LORA-373 PO (12:15)
[2016-09-26] MEDS ORDERED: PRAV40TA2 PO (12:16)
[2016-09-26] MEDS ORDERED: TRAZ100T4 PO (12:19)
[2016-09-26 12:58] LABS: AST (GOT) 114 U/L (15-37); TOTAL BILIRUBIN ADULT 0.5 MG/DL (0.2-1.0)
[2016-09-26 13:07] LABS: ALKALINE PHOSPHATASE 139 U/L (45-117); ALT (GPT) 43 U/L (12-78)
[2016-09-26] MEDS: QUEtiapine FUMARATE 25 MG TAB PO SCH (13:41)
--- NOTE | 2016-09-26 16:33 | EKG ---
Date Performed: 09/26/2016 Time Performed: 04:59:00 PTAGE: 76 years EKG: SINUS TACHYCARDIA WITH OCCASIONAL VENTRICULAR PREMATURE COMPLEXES BASELINE ARTIFACT ABNORMA L RHYTHM ECG PREVIOUS TRACING : 07/18/2010 08.02 Compared to previous tracing, the patient is now tachycardi c. DOCTOR: Shawanda Donaldson Interpretating Date/Time 09/26/2016 16:32:15
[2016-09-26 17:19] LABS: BETA-HYDROXYBUTYRATE 0.56 MMOL/L (0.00-0.39); BICARBONATE 21.8 MEQ/L (21.0-32.0); MAGNESIUM 2.2 MG/DL (1.5-2.5); POTASSIUM 3.5 MEQ/L (3.5-5.1)
[2016-09-26] MEDS ORDERED: POTASSIUM CL 40 MEQ/30 ML LIQ UDC PO/TUBE PRN ×2 (17:45)
[2016-09-26] MEDS ORDERED: MAGNESIUM OXIDE 400 MG TAB PO PRN (17:45)
[2016-09-26] MEDS ORDERED: POTASSIUM PHOSPHATE MONOBASIC 500 MG TAB PO/TUBE PRN (17:45)
[2016-09-26] MEDS ORDERED: MAGNESIUM SULFATE INJ 4 GM in SODIUM CHLORIDE 0.9% INJ 92 ML IV PRN (17:45)
[2016-09-26] MEDS ORDERED: SODIUM PHOSPHATE INJ 30 MMOL in SODIUM CHLOR 0.9% 250 ML INJ 240 ML IV PRN (17:45)
[2016-09-26] MEDS ORDERED: MAGNESIUM SULFATE INJ 2 GM in SODIUM CHLORIDE 0.9% INJ 96 ML IV PRN (17:45)
[2016-09-26] MEDS ORDERED: DEXTROSE 50% IN WATER 50 ML VIAL(D50) IV PUSH PRN (17:45)
[2016-09-26] MEDS ORDERED: POTASSIUM PHOSPHATE INJ 30 MMOL in SODIUM CHLOR 0.9% 250 ML INJ 250 ML IV PRN (17:45)
[2016-09-26] MEDS ORDERED: POTASSIUM PHOSPHATE MONOBASIC 500 MG TAB PO PRN (17:45)
[2016-09-26] MEDS: INSULIN DETEMIR 100 UNITS/ML VIAL SQ SCH (18:15)
[2016-09-26] MEDS: INSULIN NovoLIN REGULAR SUPPLEMENTAL SCALE SQ SCH (20:00)
[2016-09-26] MEDS ORDERED: GABAPENTIN 300 MG CAP PO SCH (21:00)
[2016-09-26] MEDS ORDERED: ZOLPIDEM TARTRATE 5 MG TAB PO SCH (21:00)
[2016-09-26] MEDS: DOXAZOSIN MESYLATE 4 MG TAB PO SCH (23:45)
[2016-09-27] VITALS (12 sets, daily range): BP systolic 98–125; BP diastolic 50–69; PULSE 75–89; RESP 18–20; TEMP 97.4–98.4; O2SAT 86–100
[2016-09-27 05:16] LABS: HEMATOCRIT 33.8 % (39.0-51.0); MEAN CELL VOLUME 81.4 FL (80.0-100.0); MEAN CORPUSCULAR HEMOGLOBIN 26.8 PG (27.0-34.0); PLATELET COUNT 280 TH/MM3 (150-450); RED BLOOD COUNT 4.16 MIL/MM3 (4.50-5.90); RED CELL DISTRIBUTION WIDTH 13.8 % (11.6-17.2); REVIEW FLAG FINAL; WHITE BLOOD COUNT 19.2 TH/MM3 (4.0-11.0)
[2016-09-27 05:27] LABS: BICARBONATE 23.2 MEQ/L (21.0-32.0)
[2016-09-27] MEDS: SODIUM CHLORIDE 0.9% FLUSH 5 ML FLUSH IV FLUSH SCH ×2 (09:00→20:38)
[2016-09-27] MEDS: VENLAFAXINE HCL XR 37.5 MG CAP PO SCH (09:00)
[2016-09-27] MEDS: INSULIN DETEMIR 100 UNITS/ML VIAL SQ SCH (09:47)
[2016-09-27] MEDS: INSULIN NovoLIN REGULAR SUPPLEMENTAL SCALE SQ SCH ×4 (09:48→20:00)
[2016-09-27] MEDS: PIPERACIL-TAZO 3.375 GM PREMIX 50 ML IV SCH ×2 (09:49→17:19)
[2016-09-27] MEDS: METOPROLOL SUCCINATE 25 MG EXTENDED RELEASE TAB PO SCH (09:50)
[2016-09-27] MEDS: DOCUSATE SODIUM 100 MG CAP PO SCH ×2 (09:50→20:38)
[2016-09-27] MEDS: OXcarbazepine 150 MG TAB PO SCH ×2 (09:50→20:38)
[2016-09-27] MEDS: NIACIN 500 MG EXTENDED RELEASE TAB PO SCH (09:51)
[2016-09-27] MEDS: FAMOTIDINE 20 MG/2 ML VIAL IV PUSH SCH ×2 (09:51→20:38)
[2016-09-27] MEDS: VANCOMYCIN 1,000 MG/NS 250 ML IV SCH ×4 (09:51→20:40)
[2016-09-27] MEDS: QUEtiapine FUMARATE 25 MG TAB PO SCH ×2 (09:51→12:51)
[2016-09-27] MEDS: POTASSIUM CHLOR 40 MEQ PREMIX 100 ML IV PRN (10:14)
--- NOTE | 2016-09-27 10:59 | HHI.PR ---
Objective Objective Results - Vital Signs Date Time Temp Pulse Resp B/P Pulse Ox O2 Delivery O2 Flow Rate FiO2 09/27/16 06:00 81 09/27/16 04:00 98.0 87 18 101/57 96 09/27/16 04:00 75 09/27/16 02:00 79 09/27/16 00:00 98.4 83 20 98/50 86 09/27/16 00:00 79 09/26/16 22:00 86 09/26/16 20:01 96 21 09/26/16 20:00 79 09/26/16 20:00 98.4 83 20 98/50 94 09/26/16 15:57 86 09/26/16 15:48 98.2 85 18 104/58 96 09/26/16 15:00 86 15 130/57 99 Room Air 09/26/16 14:00 88 16 117/57 99 Room Air 09/26/16 13:00 88 20 121/66 96 Room Air 09/26/16 12:00 85 18 117/57 97 Room Air 09/26/16 11:00 97.8 87 15 124/85 98 Room Air I/O 09/26/16 09/26/16 09/26/16 09/27/16 09/27/16 09/27/16 07:00 15:00 23:00 07:00 15:00 23:00 Intake Total 5238 ml 447 ml Output Total 300 ml Balance 4938 ml 447 ml Intake Oral 500 ml 150 ml IV Total 4738 ml 297 ml Output Urine Total 300 ml # Voids 5 2 Result Diagram: 09/27/16 0410 09/27/16 041 Physical Exam Physical Exam PHYSICAL EXAMINATION GENERAL: This is a well-developed, well-nourished male who appears to be in no acute distress. He is alert and awake, []. HEAD: Normocephalic without any lesion or mass noted. Facial features appear symmetric. OROPHARYNGEAL: Oropharynx without erythema or edema. NECK: Supple. No nuchal rigidity or lymphadenopathy. Trachea midline without deviation. CARDIAC: Regular rhythm, regular rate, S1 and S2 are heard. Murmur []; no gallops or rubs. LUNGS: Clear to auscultation bilaterally. [] wheeze, [] rhonchi or [] rale. No use of accessory muscles on inspiration or expiration. ABDOMEN: Soft, nontender, no organomegaly or masses. Bowel sounds are heard in all four quadrants. No rebound. No guarding. EXTREMITIES: [] edema. Pulses equal bilateral. [] cyanosis. NEUROLOGICAL: Patient mood and affect appropriate. No focal deficit SKIN:Warm and moist A/P Assessment and Plan consult dictated, [id number], K supplement, bmp am cbc am. clear liquids, advanc as tolerated. Tamiko Perales Sep 27, 2016 10:59
[2016-09-27] MEDS: HEPARIN SODIUM - SQ 10,000 UNITS/ML VIAL SQ SCH ×3 (12:50→20:40)
[2016-09-27] MEDS: DEXT 5%-NACL 0.9% 1000 ML INJ 1,000 ML IV SCH (14:00)
[2016-09-27] MEDS: traZODone HCL 50 MG TAB PO SCH (20:38)
[2016-09-27] MEDS: DOXAZOSIN MESYLATE 4 MG TAB PO SCH (20:38)
[2016-09-27] MEDS: CHLORHEXIDINE GLUCONATE 2 % 1 PACK (2 CLOTHS) TOP SCH (20:39)
[2016-09-28] VITALS (12 sets, daily range): BP systolic 116–159; BP diastolic 59–74; PULSE 68–106; RESP 16–22; TEMP 97.4–99; O2SAT 97–99
[2016-09-28] MEDS: PIPERACIL-TAZO 3.375 GM PREMIX 50 ML IV SCH ×3 (01:51→16:52)
[2016-09-28] MEDS: INSULIN NovoLIN REGULAR SUPPLEMENTAL SCALE SQ SCH ×6 (01:52→21:19)
[2016-09-28] MEDS: HEPARIN SODIUM - SQ 10,000 UNITS/ML VIAL SQ SCH ×3 (04:02→21:19)
[2016-09-28 07:38] LABS: HEMATOCRIT 35.1 % (39.0-51.0); MEAN CELL VOLUME 81.7 FL (80.0-100.0); MEAN CORPUSCULAR HEMOGLOBIN 27.2 PG (27.0-34.0); MEAN CORPUSCULAR HGB CONC 33.3 % (32.0-36.0); PLATELET COUNT 258 TH/MM3 (150-450); RED BLOOD COUNT 4.29 MIL/MM3 (4.50-5.90); RED CELL DISTRIBUTION WIDTH 13.7 % (11.6-17.2); REVIEW FLAG FINAL; WHITE BLOOD COUNT 10.5 TH/MM3 (4.0-11.0)
[2016-09-28 08:07] LABS: BICARBONATE 24.7 MEQ/L (21.0-32.0); POTASSIUM 3.2 MEQ/L (3.5-5.1)
[2016-09-28] MEDS: SODIUM CHLORIDE 0.9% FLUSH 5 ML FLUSH IV FLUSH SCH ×2 (08:51→21:20)
[2016-09-28] MEDS: DOCUSATE SODIUM 100 MG CAP PO SCH ×2 (08:51→21:00)
[2016-09-28] MEDS: NIACIN 500 MG EXTENDED RELEASE TAB PO SCH (08:51)
[2016-09-28] MEDS: FAMOTIDINE 20 MG/2 ML VIAL IV PUSH SCH ×2 (08:51→21:19)
[2016-09-28] MEDS: QUEtiapine FUMARATE 25 MG TAB PO SCH ×2 (08:51→12:18)
[2016-09-28] MEDS: VENLAFAXINE HCL XR 37.5 MG CAP PO SCH (08:51)
[2016-09-28] MEDS: INSULIN DETEMIR 100 UNITS/ML VIAL SQ SCH (08:51)
[2016-09-28] MEDS: OXcarbazepine 150 MG TAB PO SCH ×2 (08:51→21:20)
[2016-09-28] MEDS: METOPROLOL SUCCINATE 25 MG EXTENDED RELEASE TAB PO SCH (08:51)
[2016-09-28] MEDS: DEXT 5%-NACL 0.9% 1000 ML INJ 1,000 ML IV SCH ×2 (08:52→21:19)
[2016-09-28 10:23] LABS: HEMOGLOBIN Ao 65.7 %; HEMOGLOBIN F 4.6 %; HEMOGLOBIN LA1C 4.7 %; HEMOGLOBIN P3 6.9 %
[2016-09-28] MEDS: VANCOMYCIN 1,000 MG/NS 250 ML IV SCH ×2 (10:45)
--- NOTE | 2016-09-28 13:21 | HHI.PR ---
Subjective Interval History confused in restraints no family at bed side tolerating clear liquid diet no other issues per nursing staff hemodynamically stable no family at bed side Vitals/Results Intake & Output 09/27/16 09/27/16 09/28/16 15:00 23:00 07:00 Intake Total 1009 ml 1575 ml Balance 1009 ml 1575 ml Intake Oral 720 ml 360 ml IV Total 289 ml 1215 ml # Voids 4 5 # Bowel Movements 2 Vital Signs Vital Signs Date Time Temp Pulse Resp B/P Pulse Ox O2 Delivery O2 Flow Rate FiO2 09/28/16 08:15 80 09/28/16 08:15 97.4 80 17 123/65 99 09/28/16 06:00 82 09/28/16 04:00 87 09/28/16 04:00 98.1 87 22 124/66 99 09/28/16 02:00 81 09/28/16 00:00 106 09/28/16 00:00 98.5 106 22 159/74 98 09/27/16 22:00 80 09/27/16 20:00 75 09/27/16 20:00 97.5 75 18 125/59 100 09/27/16 18:00 83 09/27/16 16:00 97.9 80 20 116/66 98 09/27/16 16:00 80 09/27/16 14:00 77 CBC/BMP: 09/28/16 0622 09/28/16 0622 Lab Results Laboratory Tests Test 09/28/16 06:22 White Blood Count 10.5 TH/MM3 Red Blood Count 4.29 MIL/MM3 Hemoglobin 11.7 GM/DL Hematocrit 35.1 % Mean Corpuscular Volume 81.7 FL Mean Corpuscular Hemoglobin 27.2 PG Mean Corpuscular Hemoglobin 33.3 % Concent Red Cell Distribution Width 13.7 % Platelet Count 258 TH/MM3 Mean Platelet Volume 8.7 FL Sodium Level 138 MEQ/L Potassium Level 3.2 MEQ/L Chloride Level 105 MEQ/L Carbon Dioxide Level 24.7 MEQ/L Anion Gap 8 MEQ/L Blood Urea Nitrogen 14 MG/DL Creatinine 0.80 MG/DL Estimat Glomerular Filtration 93 ML/MIN Rate Random Glucose 124 MG/DL Calcium Level 8.2 MG/DL Physical Exam General General Appearance: No Acute Distress Appearance Remarks confused Pulmonary Resp Exam: Clear Bilaterally, Breath Sounds Equal, No Distress Cardiology CV Exam: Regular, Normal Sinus Rhythm, Good Perfusion Gastrointestinal/Abdomen GI Exam: Soft, Non-Tender, Bowel Sounds Present Musculoskeletal MS Exam: Joints Intact Integumentary Skin Exam: Clear, Warm, Dry, Intact Extremeties Extremities Exam: No Edema Assessment/Plan Assessment/Plan Assessment and Plan Altered mental status/ acute Delirium/ Possible worsening dementia - on Seroquel - Supportive care - Head CT negative DKA / Diabetes type 2 - anion gap closed - Insulin/ D5NS Hypercholesterol/ Hypertension/ GERD h/o anemia h/o Bipolar disorder h/o IBD on Empiric Zosyn, likely switch to po antibiotics in am transfer to [facility] will need SNF at discharge Farideh Centeno MD Sep 28, 2016 13:20
[2016-09-28] MEDS: DOXAZOSIN MESYLATE 4 MG TAB PO SCH (21:19)
[2016-09-28] MEDS: traZODone HCL 50 MG TAB PO SCH (21:19)
[2016-09-28] MEDS: POTASSIUM CHLOR 20 MEQ PREMIX 100 ML IV PRN (21:27)
[2016-09-28] MEDS ORDERED: PHARMACY ORDERED LAB XX ONE (21:45)
[2016-09-29] VITALS (12 sets, daily range): BP systolic 94–128; BP diastolic 55–62; PULSE 60–84; RESP 14–15; TEMP 97.7–98.4; O2SAT 96–100
[2016-09-29] MEDS: VANCOMYCIN 1,000 MG/NS 250 ML IV SCH ×4 (01:56→09:28)
[2016-09-29] MEDS: INSULIN NovoLIN REGULAR SUPPLEMENTAL SCALE SQ SCH ×6 (01:56→22:28)
[2016-09-29] MEDS: PIPERACIL-TAZO 3.375 GM PREMIX 50 ML IV SCH ×2 (01:58→10:00)
[2016-09-29] MEDS: CHLORHEXIDINE GLUCONATE 2 % 1 PACK (2 CLOTHS) TOP SCH (04:15)
[2016-09-29] MEDS: HEPARIN SODIUM - SQ 10,000 UNITS/ML VIAL SQ SCH ×3 (04:16→22:28)
[2016-09-29] MEDS: POTASSIUM CHLOR 20 MEQ PREMIX 100 ML IV PRN ×2 (04:16→06:48)
[2016-09-29 06:51] LABS: HEMATOCRIT 35.8 % (39.0-51.0); MEAN CELL VOLUME 82.9 FL (80.0-100.0); MEAN CORPUSCULAR HEMOGLOBIN 27.2 PG (27.0-34.0); MEAN CORPUSCULAR HGB CONC 32.9 % (32.0-36.0); PLATELET COUNT 262 TH/MM3 (150-450); RED BLOOD COUNT 4.31 MIL/MM3 (4.50-5.90); REVIEW FLAG FINAL; WHITE BLOOD COUNT 7.9 TH/MM3 (4.0-11.0)
[2016-09-29 07:01] LABS: BICARBONATE 24.4 MEQ/L (21.0-32.0); POTASSIUM 3.5 MEQ/L (3.5-5.1)
--- NOTE | 2016-09-29 08:19 | MB ---
cc: TISHA DILLON MD DATE OF CONSULTATION: 09/27/2016 DATE OF : 1940 No travel in the last 30 days. REASON FOR CONSULTATION Medical management. HISTORY OF PRESENT ILLNESS This is a 76-year-old white male who has a significant history of dementia. The patient does state that he had not been feeling well for the past few days. He states that his appetite had been poor but he did have symptoms of polyuria. According to the record, the patient was found on the floor by his and was brought to the emergency room with diabetic ketoacidosis, high blood sugars. He was also diagnosed with lactic acidosis and acute renal failure with dehydration. Currently the patient is in the intensive care setting. He is alert. He is responding to generalized yes or no questions but is a poor historian. He states that he is getting hungrier and is asking about food and liquids. He is noted to have pale very dry skin. No shortness of breath at rest but does appear to be debilitated. He also states that he had not been taking his diabetic medicine. MEDICAL HISTORY According to the record, due to the patient's dementia includes - 1. GERD. 2. Diabetes type 2 with peripheral neuropathy. 3. Inflammatory bowel disease. 4. Overactive bladder. 5. Hypertension. 6. Hyperlipidemia. 7. Glaucoma. 8. Diverticulosis. 9. Colon polyps. 10. Anemia. 11. Arthritis. PAST SURGICAL HISTORY According to the record - 1. Appendectomy. 2. Cataracts. 3. Cholecystectomy. 4. Tonsillectomy. 5. Total knee arthroplasty. 6. Colonoscopy in 2011. 7. Bilateral breast lumps removed. ALLERGIES CONTRAST MEDIA, IODINE, OMNIPAQUE, KEFLEX, TOBRADEX. MEDICATIONS Please see med reconciliation sheet. SOCIAL HISTORY According to the record, the patient is , currently lives at home with his . To my knowledge no alcohol, tobacco or illicit drug use. FAMILY HISTORY N/A. FAMILY HISTORY N/A. REVIEW OF SYSTEMS Limited review and assessment secondary to patient's dementia. He does answer simple questions. He does state that he is hungry. He is positive for generalized weakness and fatigue. No shortness of breath. Skin frail and dry. Other systems unremarkable or negative or unknown. PHYSICAL EXAMINATION VITAL SIGNS: Temperature is 98, pulse 87, respirations 18, blood pressure 101/57 and 98/50 previously, O2 sat 96 on room air. SKIN: Very dry, frail, warm. GENERAL: He is alert, a poor historian with some altered mental status. HEENT: Atraumatic, normocephalic. Old scar around the right buddhist area with a very small healing abrasion. The patient denies any falls. No scleral icterus. No drainage. PERRLA at 3. NECK: Neck is thin, supple. Trachea is midline. CARDIOVASCULAR: Regular rate and rhythm. No murmurs, rubs or gallops appreciated. RESPIRATORY: Low air volumes but essentially clear anteriorly and posteriorly with no rales, wheezes or rhonchi. GASTROINTESTINAL: Abdomen is flat, soft, nontender, nondistended. Active bowel sounds in all four quadrants. MUSCULOSKELETAL: He can overcome resistance with his lower extremities. 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 No cyanosis, no edema. PSYCHOLOGICAL: Appropriate mood and affect, pleasantly confused. NEUROLOGICAL: N/A secondary to dementia. DIAGNOSTIC DATA WBC count 19.2, RBC 14.16, hemoglobin 11.2, hematocrit 33.8, platelet count 280. Chemistry: Sodium 143, potassium 3, chloride 112, anion gap 8, BUN 25, creatinine 0.97, random glucose 97 now was 281 initially on admission, lactic acid initial on admission 5 now 2.8, calcium level 8.1. IMAGING Chest x-ray: No acute disease. CT head: No acute disease. ASSESSMENT 1. Lactic acidosis. 2. Diabetic ketoacidosis. 3. Acute renal failure with dehydration. 4. Altered mental status. 5. Dementia. 6. Diabetes type 2. 7. Delirium which is now resolving. 8. Hypokalemia. PLAN 1. Follow and assist with his medical management. 2. The patient is on Accu-Chek's a.c. and h.s. with a sliding scale. 3. We will monitor his needs. 4. Vital signs are q.1-4 depending on his needs. 5. The patient has hypokalemia protocol. Our plan is to give him IV and/or p.o. and monitor labs to return him to a normal range. 6. Respiratory is working with him with incentive spirometry. PEP therapy. Acapella therapy. 7. O2 as needed. 8. Medications have been reconciled. 9. The patient is being given vancomycin, Cardura, Desyrel, Levemir insulin, mag ox, potassium chloride and potassium phosphate as needed, piperacillin. 10. PUD prophylaxis with Pepcid 11. Heparin for DVT prophylaxis. We will follow and monitor his needs. Thank you very much for the consult. DICTATED BY: TYSON Martino MD GAVINO Desai/ANDREW /10:46 AM /8:20 AM
[2016-09-29] MEDS: INSULIN DETEMIR 100 UNITS/ML VIAL SQ SCH (09:00)
[2016-09-29] MEDS: SODIUM CHLORIDE 0.9% FLUSH 5 ML FLUSH IV FLUSH SCH ×2 (09:00→22:29)
[2016-09-29] MEDS: QUEtiapine FUMARATE 25 MG TAB PO SCH (09:16)
[2016-09-29] MEDS: METOPROLOL SUCCINATE 25 MG EXTENDED RELEASE TAB PO SCH (09:17)
[2016-09-29] MEDS: NIACIN 500 MG EXTENDED RELEASE TAB PO SCH (09:17)
[2016-09-29] MEDS: VENLAFAXINE HCL XR 37.5 MG CAP PO SCH (09:17)
[2016-09-29] MEDS: DOCUSATE SODIUM 100 MG CAP PO SCH ×2 (09:17→22:28)
[2016-09-29] MEDS: OXcarbazepine 150 MG TAB PO SCH ×2 (09:17→22:28)
[2016-09-29] MEDS ORDERED: METO25TA6 PO (10:36)
[2016-09-29] MEDS ORDERED: QUET1TAB7 PO (10:36)
[2016-09-29] MEDS ORDERED: CARD4TAB2 PO (10:36)
[2016-09-29] MEDS ORDERED: LEVEMIR SQ (10:36)
[2016-09-29] MEDS: LEVOFLOXACIN 250 MG TAB PO SCH (11:09)
--- NOTE | 2016-09-29 12:20 | HHI.PR ---
Subjective Interval History awake alert oriented per nursing staff dar, now lethargic, opens eyes to name , but not talking BP dropped to 80 systolic after morning meds in restraints tolerating diet discussed with POMyranda: She is 84 yr old and cannot take care of him anymore. per nursing patient is incontinent of stool and urine and very weak Vitals/Results Intake & Output 09/28/16 09/28/16 09/29/16 15:00 23:00 07:00 Intake Total 1359 ml 1220 ml Output Total 750 ml 1320 ml Balance 609 ml -100 ml Intake Oral 720 ml IV Total 639 ml 1220 ml Output Urine Total 750 ml 1320 ml # Bowel Movements 1 3 Vital Signs Vital Signs Date Time Temp Pulse Resp B/P Pulse Ox O2 Delivery O2 Flow Rate FiO2 09/29/16 10:00 83 09/29/16 09:09 99 Nasal Cannula 21 09/29/16 08:00 83 09/29/16 08:00 98.3 73 14 94/55 97 09/29/16 06:00 73 09/29/16 04:00 70 09/29/16 04:00 98.2 70 14 105/55 97 09/29/16 02:00 71 09/29/16 00:00 75 09/29/16 00:00 98.1 75 14 128/62 100 09/28/16 22:00 76 09/28/16 20:00 83 09/28/16 20:00 99.0 83 16 147/70 99 09/28/16 18:00 78 09/28/16 16:00 98.4 68 17 119/59 98 09/28/16 16:00 68 09/28/16 14:00 69 CBC/BMP: 09/29/16 0506 09/29/16 0504 Lab Results Laboratory Tests Test 09/28/16 09/29/16 09/29/16 23:20 05:04 05:06 Vancomycin Level Trough 11.9 MCG/ML Sodium Level 140 MEQ/L Potassium Level 3.5 MEQ/L Chloride Level 108 MEQ/L Carbon Dioxide Level 24.4 MEQ/L Anion Gap 8 MEQ/L Blood Urea Nitrogen 9 MG/DL Creatinine 0.82 MG/DL Estimat Glomerular Filtration 91 ML/MIN Rate Random Glucose 116 MG/DL Calcium Level 8.5 MG/DL White Blood Count 7.9 TH/MM3 Red Blood Count 4.31 MIL/MM3 Hemoglobin 11.7 GM/DL Hematocrit 35.8 % Mean Corpuscular Volume 82.9 FL Mean Corpuscular Hemoglobin 27.2 PG Mean Corpuscular Hemoglobin 32.9 % Concent Red Cell Distribution Width 14.0 % Platelet Count 262 TH/MM3 Mean Platelet Volume 8.3 FL Physical Exam General General Appearance: No Acute Distress Appearance Remarks lethargic, but arousable Pulmonary Resp Exam: Clear Bilaterally, Breath Sounds Equal, No Distress Cardiology CV Exam: Regular, Normal Sinus Rhythm, Good Perfusion Gastrointestinal/Abdomen GI Exam: Soft, Non-Tender, Bowel Sounds Present Musculoskeletal MS Exam: Joints Intact Integumentary Skin Exam: Clear, Warm, Dry, Intact Extremeties Extremities Exam: No Edema Assessment/Plan Assessment/Plan Assessment and Plan Altered mental status/ acute Delirium/ Possible worsening dementia - on Seroquel will decrease dose to 12.5 mg po bid _ d/c restraints - Supportive care - Head CT negative - not suicidal per psych DKA / Diabetes type 2 - anion gap closed - continue Insulin/ d/c D5NS tolerating po diet d/c broad spectrum antibiotics no source of infection identified will switch to PO LVQ REPEAT CBC and BMP in am Hypercholesterol/ Hypertension/ GERD h/o anemia h/o Bipolar disorder h/o IBD transfer to [facility] will need SNF at discharge discussed with CODEY and case management case management consult Farideh Centeno MD Sep 29, 2016 12:20
[2016-09-29] MEDS: DOXAZOSIN MESYLATE 4 MG TAB PO SCH (22:28)
[2016-09-29] MEDS: traZODone HCL 50 MG TAB PO SCH (22:28)
[2016-09-30] VITALS (9 sets, daily range): BP systolic 104–134; BP diastolic 51–63; PULSE 69–80; RESP 15; TEMP 98.4–98.7; O2SAT 95–98
[2016-09-30] MEDS: INSULIN NovoLIN REGULAR SUPPLEMENTAL SCALE SQ SCH ×5 (02:47→16:29)
[2016-09-30] MEDS: CHLORHEXIDINE GLUCONATE 2 % 1 PACK (2 CLOTHS) TOP SCH (04:00)
[2016-09-30] MEDS: HEPARIN SODIUM - SQ 10,000 UNITS/ML VIAL SQ SCH ×2 (05:39→13:54)
[2016-09-30 06:15] LABS: HEMATOCRIT 34.7 % (39.0-51.0); MEAN CELL VOLUME 81.9 FL (80.0-100.0); MEAN CORPUSCULAR HEMOGLOBIN 28.1 PG (27.0-34.0); MEAN CORPUSCULAR HGB CONC 34.3 % (32.0-36.0); PLATELET COUNT 254 TH/MM3 (150-450); RED BLOOD COUNT 4.23 MIL/MM3 (4.50-5.90); RED CELL DISTRIBUTION WIDTH 13.9 % (11.6-17.2); REVIEW FLAG FINAL; WHITE BLOOD COUNT 7.2 TH/MM3 (4.0-11.0)
[2016-09-30 06:35] LABS: BICARBONATE 25.2 MEQ/L (21.0-32.0); POTASSIUM 3.2 MEQ/L (3.5-5.1)
[2016-09-30] MEDS: POTASSIUM CHLOR 40 MEQ PREMIX 100 ML IV PRN (07:27)
[2016-09-30] MEDS: SODIUM CHLORIDE 0.9% FLUSH 5 ML FLUSH IV FLUSH SCH (09:00)
[2016-09-30] MEDS ORDERED: METOPROLOL SUCCINATE 25 MG EXTENDED RELEASE TAB PO SCH (09:00)
[2016-09-30] MEDS: DOCUSATE SODIUM 100 MG CAP PO SCH (09:00)
[2016-09-30] MEDS ORDERED: PILL SPLITTER OTHER PRN (09:00)
[2016-09-30] MEDS: INSULIN DETEMIR 100 UNITS/ML VIAL SQ SCH (09:25)
[2016-09-30] MEDS: VENLAFAXINE HCL XR 37.5 MG CAP PO SCH (09:25)
[2016-09-30] MEDS: NIACIN 500 MG EXTENDED RELEASE TAB PO SCH (09:26)
[2016-09-30] MEDS: OXcarbazepine 150 MG TAB PO SCH (09:26)
[2016-09-30] MEDS: QUEtiapine FUMARATE 25 MG TAB PO SCH ×2 (09:26→12:00)
[2016-09-30] MEDS: LEVOFLOXACIN 250 MG TAB PO SCH (09:27)
--- NOTE | 2016-09-30 12:37 | HHI.PR ---
Subjective Interval History awake alert oriented laying in bed BP stable blood glucose stable no other issues Vitals/Results Intake & Output 09/29/16 09/29/16 09/30/16 15:00 23:00 07:00 Intake Total 940 ml Output Total 550 ml 800 ml 400 ml Balance 390 ml -800 ml -400 ml Intake Oral 380 ml IV Total 560 ml Output Urine Total 550 ml 800 ml 400 ml # Voids 4 # Bowel Movements 2 Vital Signs Vital Signs Date Time Temp Pulse Resp B/P Pulse Ox O2 Delivery O2 Flow Rate FiO2 09/30/16 12:27 95 21 09/30/16 10:00 69 09/30/16 08:00 98.7 80 15 104/51 97 09/30/16 08:00 69 09/30/16 06:00 69 09/30/16 04:00 72 09/30/16 04:00 98.5 72 15 113/58 95 09/30/16 02:00 73 09/30/16 00:00 76 09/30/16 00:00 98.4 76 15 123/63 98 09/29/16 22:00 60 09/29/16 20:00 65 09/29/16 20:00 97.7 66 15 100/57 96 09/29/16 16:00 98.4 84 14 111/55 97 09/29/16 16:00 83 09/29/16 14:00 83 CBC/BMP: 09/30/16 0437 09/30/16 0437 Lab Results Laboratory Tests Test 09/29/16 09/30/16 13:47 04:37 Potassium Level 4.0 MEQ/L 3.2 MEQ/L White Blood Count 7.2 TH/MM3 Red Blood Count 4.23 MIL/MM3 Hemoglobin 11.9 GM/DL Hematocrit 34.7 % Mean Corpuscular Volume 81.9 FL Mean Corpuscular Hemoglobin 28.1 PG Mean Corpuscular Hemoglobin 34.3 % Concent Red Cell Distribution Width 13.9 % Platelet Count 254 TH/MM3 Mean Platelet Volume 8.5 FL Sodium Level 137 MEQ/L Chloride Level 103 MEQ/L Carbon Dioxide Level 25.2 MEQ/L Anion Gap 9 MEQ/L Blood Urea Nitrogen 9 MG/DL Creatinine 0.94 MG/DL Estimat Glomerular Filtration 78 ML/MIN Rate Random Glucose 167 MG/DL Calcium Level 8.2 MG/DL Physical Exam General General Appearance: No Acute Distress, Comfortable Eyes Eye Exam: Pupils Equal, Pupils Reactive Throat Throat Exam: Oral Mucosa [place] & Moist Pulmonary Resp Exam: Clear Bilaterally, Breath Sounds Equal, No Distress Cardiology CV Exam: Regular, Normal Sinus Rhythm, Good Perfusion Gastrointestinal/Abdomen GI Exam: Soft, Non-Tender, Bowel Sounds Present Musculoskeletal MS Exam: Joints Intact Integumentary Skin Exam: Clear, Warm, Dry, Intact Extremeties Extremities Exam: No Edema Neurologic Neuro Exam: Alert, Awake, Oriented, Speech Clear Psychiatric Psych Exam: Appropriate Responses Assessment/Plan Assessment/Plan Assessment and Plan Altered mental status/ acute Delirium/ Possible worsening dementia - on Seroquel will decrease dose to 12.5 mg po bid _ d/c restraints - Supportive care - Head CT negative - not suicidal per psych DKA / Diabetes type 2 - anion gap closed - continue Insulin/ d/c D5NS tolerating po diet d/c broad spectrum antibiotics no source of infection identified on PO LVQ labs stable Hypercholesterol/ Hypertension/ GERD h/o anemia h/o Bipolar disorder h/o IBD Ok to d/c to SNF discussed with POA and case management case management consult discussed with patient discussed with nursing staff Farideh Centeno MD Sep 30, 2016 12:37
[2016-09-30] MEDS ORDERED: LEVA250T PO (12:40)
--- NOTE | 2016-09-30 18:22 | HHI.DS ---
Discharge Summary Admission Date Sep 26, 2016 at 05:42 Discharge Date: Sep 30, 2016 Admitting Diagnosis diabetic ketoacidosis, acute renal failure, lactic acidosis, dehydra Brief History This was a 76-year-old white male who had a significant history of dementia. The patient did state that he had not been feeling well for the past few days before admission. He stated that his appetite had been poor but he did have symptoms of polyuria. According to the record, the patient was found on the floor by his and was brought to the emergency room with diabetic ketoacidosis, high blood sugars. He was also diagnosed with lactic acidosis and acute renal failure with dehydration. Currently the patient was placed in the intensive care setting. He was alert. He was responding to generalized yes or no questions but was a poor historian. He stated that he is getting hungrier and was asking about food and liquids. He was noted to have pale very dry skin. He had No shortness of breath at rest but did appear to be debilitated. He also stated that he had not been taking his diabetic medicine. CBC/BMP: 09/30/16 0437 09/30/16 0437 Significant Findings Laboratory Tests Test 09/28/16 09/28/16 09/29/16 09/29/16 06:22 23:20 05:04 05:06 Red Blood Count 4.29 MIL/MM3 4.31 MIL/MM3 (4.50-5.90) (4.50-5.90) Hemoglobin 11.7 GM/DL 11.7 GM/DL (13.0-17.0) (13.0-17.0) Hematocrit 35.1 % 35.8 % (39.0-51.0) (39.0-51.0) Potassium Level 3.2 MEQ/L (3.5-5.1) Random Glucose 124 MG/DL 116 MG/DL (74-106) (74-106) Calcium Level 8.2 MG/DL (8.5-10.1) Vancomycin Level Trough 11.9 MCG/ML (5.0-10.0) Chloride Level 108 MEQ/L (98-107) Test 09/30/16 04:37 Red Blood Count 4.23 MIL/MM3 (4.50-5.90) Hemoglobin 11.9 GM/DL (13.0-17.0) Hematocrit 34.7 % (39.0-51.0) Potassium Level 3.2 MEQ/L (3.5-5.1) Estimat Glomerular Filtration 78 ML/MIN (>89) Rate Random Glucose 167 MG/DL (74-106) Calcium Level 8.2 MG/DL (8.5-10.1) Imaging Last Impressions Chest X-Ray 09/26/16 0414 Signed Impressions: Service Date/Time: Monday, September 26, 2016 04:25 - CONCLUSION: No acute disease. Jorge Asher MD Head CT 09/26/16 0000 Signed Impressions: Service Date/Time: Monday, September 26, 2016 04:42 - CONCLUSION: No acute disease. Jorge Asher MD PE at Discharge General Appearance: No Acute Distress, Comfortable Eye Exam: Pupils Equal, Pupils Reactive Throat Exam: Oral Mucosa [place] & Moist Resp Exam: Clear Bilaterally, Breath Sounds Equal, No Distress CV Exam: Regular, Normal Sinus Rhythm, Good Perfusion GI Exam: Soft, Non-Tender, Bowel Sounds Present MS Exam: Joints Intact Skin Exam: Clear, Warm, Dry, Intact Extremities Exam: No Edema Neuro Exam: Alert, Awake, Oriented, Speech Clear Psych Exam: Appropriate Responses Hospital Course These are the diagnoses used for the treatment of this hospital stay plan of care. 1. Lactic acidosis. 2. Diabetic ketoacidosis. 3. Acute renal failure with dehydration. 4. Altered mental status. 5. Dementia. 6. Diabetes type 2. 7. Delirium which is now resolving. 8. Hypokalemia. Below is a breakdown of his different medical issues and the plan of care that was used. Labs were drawn and monitored during hospital stay. Vital signs were monitored every 4 and when necessary during hospital stay. Altered mental status/ acute Delirium/ Possible worsening dementia was noted and needed medical management. Patient was - on Seroquel. Dose was decreased to 12.5 mg po bid and monitored throughout hospital stay _Patient was initially requiring restraints for his safety and delirium. These restraints were d/cd once the patient was medical stable. This was at least 24 hours before discharge. - Supportive care was given throughout this hospital stay - Head CT was initially done. Results were negative Patient was evaluated per psychiatry not found to be suicidal. DKA / Diabetes type 2 chronic diagnosis on admission. - anion gap closed and was monitored throughout stay - continue Insulin/ after DKA resolved d/c D5NS after DKA resolved tolerating po diet , monitored his nutrition broad spectrum antibiotics were initially ordered, but discontinued before discharge no source of infection was identified. labs were monitored and stable on day of discharge. Hypercholesterol/ Hypertension/ GERD h/o anemia, but stable during this hospital stay h/o Bipolar disorder, medical management during this hospital stay h/o IBD, adequate management Ok to d/c to SNF after assessment in visit per Dr. Centeno. It is felt the patient would be safe and monitored 24 7 at the SNF level of care , and could receive physical therapy for some strengthening and mobility. discussed with POA and case management for discharge planning discussed with patient who agreed to the plan of SNF. Discharged without any other acute events Pt Condition on Discharge: Stable Discharge Disposition: Discharge to SNF Discharge Instructions DIET: Follow Instructions for: Diabetic Diet Activities you can perform: Regular-No Restrictions Follow up Referrals: PCP Follow-up New Medications: Doxazosin (Cardura) 4 Mg Tab 4 MG PO HS bph Days 14 TAB Insulin Detemir Inj (Levemir Inj) 1,000 unit/ 10 ML Vial 10 UNITS SQ DAILY DM Days 30 INJECTION Levofloxacin (Levaquin) 250 Mg Tab 250 MG PO DAILY infection Days 5 TAB Metoprolol Succinate ER 24 HR (Metoprolol Succinate ER 24 HR) 25 Mg Tab 25 MG PO DAILY htn Days 30 TAB Quetiapine (Quetiapine) 25 Mg Tab 25 MG PO BID@09,12 Anxiety Days 30 TAB Continued Medications: Pravastatin (Pravastatin) 40 Mg Tab 40 MG PO HS Cholesterol Management #30 Ref 0 TAB Trazodone (Trazodone) Unknown Strength Tab Unknown Dose PO HS Control Depression #30 Ref 0 TAB Venlafaxine ER 24 HR (Venlafaxine ER 24 HR) 75 Mg Cap 75 MG PO DAILY #30 Ref 0 CAP Discontinued Medications: Hydroxyzine Pamoate (Vistaril) 25 Mg Cap 25 MG PO HS Ref 0 CAP Insulin Human Isophane-Regular 70-30 Inj (Novolin 70/30 Inj) 1,000 Units/10 Ml Inj 85 UNITS SQ BIDAC Lorazepam (Lorazepam) 0.5 Mg Tab 0.5 MG PO HS Anxiety Ref 0 TAB Tramadol (Tramadol) 50 Mg Tab 50 MG PO TID PRN PAIN Ref 0 TAB Tamiko Perales Sep 30, 2016 18:22
[2016-09-30] MEDS ORDERED: PHARMACY ORDERED LAB XX ONE (21:45)
[2016-10-01 07:46] LABS: CRITICAL VALUE YES
== END 2016-09-30 17:36 | DRG 638 ==
LOC: NEPC 04:06 → NEDA 05:42 → HIME 15:15
PROVIDERS: ADMIT Internal Medicine; ATTEND Internal Medicine
DX: E13.10 Other specified diabetes mellitus with ketoacidosis without coma (principal); N17.9 Acute kidney failure, unspecified; F03.90 Unspecified dementia, unspecified severity, without behavioral disturbance, psychotic disturbance, mood disturbance, and anxiety; F05 Delirium due to known physiological condition; E86.0 Dehydration; N32.81 Overactive bladder; Z78.1 Physical restraint status; Z91.14 Patient's other noncompliance with medication regimen; Z66 Do not resuscitate; Z79.4 Long term (current) use of insulin; I10 Essential (primary) hypertension; I25.10 Atherosclerotic heart disease of native coronary artery without angina pectoris; Z86.010 Personal history of colon polyps; Z85.828 Personal history of other malignant neoplasm of skin; Z87.891 Personal history of nicotine dependence; Z88.8 Allergy status to other drugs, medicaments and biological substances; Z88.1 Allergy status to other antibiotic agents; Z91.041 Radiographic dye allergy status; M19.90 Unspecified osteoarthritis, unspecified site; E78.00 Pure hypercholesterolemia, unspecified; K21.9 Gastro-esophageal reflux disease without esophagitis; Z96.651 Presence of right artificial knee joint; H40.9 Unspecified glaucoma; D63.8 Anemia in other chronic diseases classified elsewhere; F31.9 Bipolar disorder, unspecified; E11.42 Type 2 diabetes mellitus with diabetic polyneuropathy; E78.5 Hyperlipidemia, unspecified; E87.6 Hypokalemia
CPT/HCPCS: 70450; 71010; 76937; 80048; 80053; 80202; 81001; 82010; 82805; 82948; 83036; 83605; 83735; 84100; 84132; 84484; 85025; 85027; 87040; 87641; 90471; 90714; 93005; 94150; 94640; 94667; 94668; J1644; J1815; J1817; J2543; J3370; J3480; J7030; J7040; J7042; J7050

== ENCOUNTER → 2017-05-27 | Outpatient (CLI) | payer MEDICARE, OTHER ==
[~2017-05-27] MED LIST changes: -AMBI5TAB PO; -GABA300 PO; -GLUC1KIT IM; -HUMALOG SQ; -JANU50TA5 PO; -LANTUSP SQ; +LEVA250T PO; +LEVEMIR SQ; -LORA-474 PO; +METO25TA6 PO; -NEXI40CA PO; -NIAC500 PO; +PRAV40TA2 PO; +QUET1TAB7 PO; -STAR60TA PO; -TOPR25TA2 PO; +TRAZ100T4 PO; -TRIL150T PO; +VENL75CA44 PO; -ZOCO40TA PO
== END ==
LOC: HRSP 12:25
PROVIDERS: ATTEND Specialist
DX: R79.81 Abnormal blood-gas level (principal)
CPT/HCPCS: 36600; 82805

== ENCOUNTER 2017-07-15 09:42 | Emergency (ER) | payer MEDICARE, OTHER ==
[~2017-07-15] VITALS: Ht 172.7 cm; Wt 80.0 kg
[~2017-07-15 09:42] MED LIST changes: +METO1TAB42 PO; -METO25TA6 PO
[2017-07-15 09:45] VITALS: BP 147/75; PULSE 77; RESP 21; TEMP 97.7; O2SAT 95
[2017-07-15] MEDS ORDERED: SODIUM CHLORIDE 0.9% FLUSH 10 ML FLUSH IVF PRN (10:00)
[2017-07-15] MEDS ORDERED: SODIUM CHLORID 0.9% 500 ML INJ 500 ML IV ONE (10:00)
--- NOTE | 2017-07-15 10:02 | PD ---
HPI Chief Complaint: cough Time Seen by Provider: 09:46 Travel History International Travel<30 days: No Contact w/Intl Traveler<30days: No Traveled to known affect area: No History of Present Illness HPI The patient is a 77 year-old male who presents to the emergency department via EMS for cough. The patient states he's had 2 months of cough and cold symptoms similar to the fluid. However, the last 24-48 hours patient is had some increasing dry mostly nonproductive cough as well as mild shortness of breath. He denies any sore throat, does note mild congestion. He denies any chest pain, nausea, vomiting, diarrhea, or abdominal pain. He does complain of mild malaise. He denies any history of recurrent pneumonia or bronchitis. Symptoms are mild to moderate, exacerbated over the last several days, and there are no current alleviating factors. He denies any fever, chills , or sweats. According to EMS the patient does have a history of mild dementia , but was alert and oriented to month, year, and top lift cutter. PFSH Past Medical History Depression: Yes Cancer: Yes (SKIN) Cardiovascular Problems: No Coronary Artery Disease: Yes Diabetes: Yes Diminished Hearing: Yes Hiatal Hernia: Yes Hypertension: Yes Respiratory: No Thyroid Disease: No Ulcer: Yes Past Surgical History Abdominal Surgery: Yes (COLON RESECTION) Eye Surgery: Yes (CATARACT SX BOTH EYES) Pacemaker: No Other Surgery: Yes Social History Alcohol Use: No Tobacco Use: Yes (QUIT LONG AGO) Substance Use: No Allergies-Medications (Allergen,Severity, Reaction): Coded Allergies: cephalexin (Verified Allergy, Severe, RASH,ITCHING, 07/15/17) dexamethasone (Verified Allergy, Severe, UNKNOWN, 07/15/17) diatrizoate meglumine (Verified Allergy, Severe, DYSPNEA, 07/15/17) gadobenic acid (Verified Allergy, Severe, DYSPNEA, 07/15/17) gadodiamide (Verified Allergy, Severe, DYSPNEA, 07/15/17) gadoteridol (Verified Allergy, Severe, DYSPNEA, 07/15/17) iodixanol (Verified Allergy, Severe, DYSPNEA, 07/15/17) iohexol (Verified Allergy, Severe, ANAPHYLAXIS, 07/15/17) tobramycin (Verified Allergy, Severe, UNKNOWN, 07/15/17) iodine (Verified Allergy, Unknown, NOT SURE , 07/15/17) potassium iodide (Verified Allergy, Unknown, NOT SURE , 07/15/17) povidone-iodine (Verified Allergy, Unknown, NOT SURE , 07/15/17) sodium iodide (Verified Allergy, Unknown, NOT SURE , 07/15/17) sodium iodide (Verified Allergy, Unknown, NOT SURE , 07/15/17) Reported Meds & Prescriptions Reported Meds & Active Scripts Active Quetiapine (Quetiapine Fumarate) 25 Mg Tab 25 Mg PO BID@,12 30 Days Levemir Inj (Insulin Detemir) 1,000 unit/ 10 ML Vial 10 Units SQ DAILY 30 Days Reported Donepezil 5 Mg Tab 5 Mg PO HS Novolog Mix 70-30 Inj (Insulin Aspart Prota 70%/Aspart 30%) 1,000 Unit/10 Ml Vial 1 Units SQ Aspirin 81 Mg Chew 81 Mg CHEW DAILY Trazodone (Trazodone HCl) 50 Mg Tab 50 Mg PO HS Tramadol (Tramadol HCl) 50 Mg Tab 50 Mg PO Q8H PRN Lamotrigine 100 Mg Tab 100 Mg PO DAILY Buspirone (Buspirone HCl) 10 Mg Tab 10 Mg PO BID Pravastatin 40 Mg Tab 40 Mg PO HS Venlafaxine ER 24 HR (Venlafaxine HCl) 75 Mg Cap 75 Mg PO DAILY Review of Systems Except as stated in HPI: all other systems reviewed are Neg General / Constitutional: No: Fever, Chills HENT: Positive: Congestion, No: Sore Throat Cardiovascular: No: Chest Pain or Discomfort Respiratory: Positive: Cough, Shortness of Breath Gastrointestinal: No: Nausea, Vomiting, Diarrhea, Abdominal Pain Genitourinary: No: Dysuria Musculoskeletal: Positive: Weakness, No: Edema Neurologic: No: Dizziness Physical Exam Narrative GENERAL: Awake, alert, pleasant 77-year-old male who appears his stated age and is in no acute respiratory distress. SKIN: Focused skin assessment warm/dry. HEAD: Atraumatic. Normocephalic. EYES: Pupils equal and round. No injection or drainage. ENT: No nasal bleeding or discharge. Mildly erythematous posterior oropharynx. No visible upper or lower teeth. NECK: Trachea midline. No JVD. CARDIOVASCULAR: Regular rate and rhythm. No murmur appreciated. RESPIRATORY: No accessory muscle use. Clear to auscultation. Breath sounds equal bilaterally. GASTROINTESTINAL: Abdomen soft, non-tender, nondistended. No rebound tenderness. MUSCULOSKELETAL: No obvious deformities. No clubbing. No cyanosis. No edema. NEUROLOGICAL: Awake and alert. No obvious cranial nerve deficits. Motor grossly within normal limits. Normal speech. Oriented to person, month, year, and top lift cutter. Back: No CVA tenderness. PSYCHIATRIC: Appropriate mood and affect; insight and judgment normal. Data Data Last Documented VS Vital Signs Date Time Temp Pulse Resp B/P (MAP) Pulse Ox O2 Delivery O2 Flow Rate FiO2 07/15/17 12:41 96 18 152/70 (97) 98 Room Air 07/15/17 09:45 97.7 Orders Orders Electrocardiogram (07/15/17 09:56) Complete Blood Count With Diff (07/15/17 09:56) Comprehensive Metabolic Panel (07/15/17 09:56) Lactic Acid Sepsis Protocol (07/15/17 09:56) Urinalysis - C+S If Indicated (07/15/17 09:56) Blood Culture (07/15/17 09:56) Chest, Single Ap (07/15/17 09:56) Ecg Monitoring (07/15/17 09:56) Iv Access Insert/Monitor (07/15/17 09:56) Oximetry (07/15/17 09:56) Sodium Chloride 0.9% Flush (Ns Flush) (07/15/17 10:00) Albuterol-Ipratropium Neb (Duoneb Neb) (07/15/17 10:00) B-Type Natriuretic Peptide (07/15/17 09:56) Sodium Chlorid 0.9% 500 Ml Inj (Ns 500 M (07/15/17 10:00) Influenzae A/B Antigen (07/15/17 10:03) Methylprednisolone So Succ Inj (Solumedr (07/15/17 12:30) Labs Laboratory Tests Test 07/15/17 10:00 07/15/17 12:30 White Blood Count 8.8 TH/MM3 Red Blood Count 5.23 MIL/MM3 Hemoglobin 14.5 GM/DL Hematocrit 44.0 % Mean Corpuscular Volume 84.2 FL Mean Corpuscular Hemoglobin 27.8 PG Mean Corpuscular Hemoglobin Concent 33.0 % Red Cell Distribution Width 14.0 % Platelet Count 300 TH/MM3 Mean Platelet Volume 8.2 FL Neutrophils (%) (Auto) 60.2 % Lymphocytes (%) (Auto) 21.3 % Monocytes (%) (Auto) 11.2 % Eosinophils (%) (Auto) 5.9 % Basophils (%) (Auto) 1.4 % Neutrophils # (Auto) 5.3 TH/MM3 Lymphocytes # (Auto) 1.9 TH/MM3 Monocytes # (Auto) 1.0 TH/MM3 Eosinophils # (Auto) 0.5 TH/MM3 Basophils # (Auto) 0.1 TH/MM3 CBC Comment DIFF FINAL Differential Comment Blood Urea Nitrogen 27 MG/DL Creatinine 1.31 MG/DL Random Glucose 217 MG/DL Total Protein 8.5 GM/DL Albumin 3.9 GM/DL Calcium Level 10.0 MG/DL Alkaline Phosphatase 104 U/L Aspartate Amino Transf (AST/SGOT) 37 U/L Alanine Aminotransferase (ALT/SGPT) 28 U/L Total Bilirubin 0.5 MG/DL Sodium Level 134 MEQ/L Potassium Level 4.6 MEQ/L Chloride Level 100 MEQ/L Carbon Dioxide Level 27.2 MEQ/L Anion Gap 7 MEQ/L Estimat Glomerular Filtration Rate 53 ML/MIN Lactic Acid Level 1.6 mmol/L B-Type Natriuretic Peptide 36 PG/ML Urine Color YELLOW Urine Turbidity CLEAR Urine pH 5.5 Urine Specific [place] 1.013 Urine Protein TRACE mg/dL Urine Glucose (UA) 300 mg/dL Urine Ketones NEG mg/dL Urine Occult Blood NEG Urine Nitrite NEG Urine Bilirubin NEG Urine Urobilinogen LESS THAN 2.0 MG/DL Urine Leukocyte Esterase NEG Urine RBC 1 /hpf Urine WBC 1 /hpf Urine Mucus FEW /lpf Microscopic Urinalysis Comment CULT NOT INDICATED MDM Medical Decision Making Medical Screen Exam Complete: Yes Emergency Medical Condition: Yes Medical Record Reviewed: Yes Interpretation(s) EKG reveals normal sinus rhythm with a rate 82. Right bundle-branch block. Last Impressions Chest X-Ray 07/15/17 0956 Signed Impressions: Service Date/Time: Saturday, July 15, 2017 10:39 - CONCLUSION: Interstitial changes and likely pulmonary fibrosis. Ruben Terrell MD Laboratory Tests Test 07/15/17 10:00 07/15/17 12:30 White Blood Count 8.8 TH/MM3 Red Blood Count 5.23 MIL/MM3 Hemoglobin 14.5 GM/DL Hematocrit 44.0 % Mean Corpuscular Volume 84.2 FL Mean Corpuscular Hemoglobin 27.8 PG Mean Corpuscular Hemoglobin Concent 33.0 % Red Cell Distribution Width 14.0 % Platelet Count 300 TH/MM3 Mean Platelet Volume 8.2 FL Neutrophils (%) (Auto) 60.2 % Lymphocytes (%) (Auto) 21.3 % Monocytes (%) (Auto) 11.2 % Eosinophils (%) (Auto) 5.9 % Basophils (%) (Auto) 1.4 % Neutrophils # (Auto) 5.3 TH/MM3 Lymphocytes # (Auto) 1.9 TH/MM3 Monocytes # (Auto) 1.0 TH/MM3 Eosinophils # (Auto) 0.5 TH/MM3 Basophils # (Auto) 0.1 TH/MM3 CBC Comment DIFF FINAL Differential Comment Blood Urea Nitrogen 27 MG/DL Creatinine 1.31 MG/DL Random Glucose 217 MG/DL Total Protein 8.5 GM/DL Albumin 3.9 GM/DL Calcium Level 10.0 MG/DL Alkaline Phosphatase 104 U/L Aspartate Amino Transf (AST/SGOT) 37 U/L Alanine Aminotransferase (ALT/SGPT) 28 U/L Total Bilirubin 0.5 MG/DL Sodium Level 134 MEQ/L Potassium Level 4.6 MEQ/L Chloride Level 100 MEQ/L Carbon Dioxide Level 27.2 MEQ/L Anion Gap 7 MEQ/L Estimat Glomerular Filtration Rate 53 ML/MIN Lactic Acid Level 1.6 mmol/L B-Type Natriuretic Peptide 36 PG/ML Urine Color YELLOW Urine Turbidity CLEAR Urine pH 5.5 Urine Specific [place] 1.013 Urine Protein TRACE mg/dL Urine Glucose (UA) 300 mg/dL Urine Ketones NEG mg/dL Urine Occult Blood NEG Urine Nitrite NEG Urine Bilirubin NEG Urine Urobilinogen LESS THAN 2.0 MG/DL Urine Leukocyte Esterase NEG Urine RBC 1 /hpf Urine WBC 1 /hpf Urine Mucus FEW /lpf Microscopic Urinalysis Comment CULT NOT INDICATED Differential Diagnosis Differential diagnosis includes bronchitis, pneumonia, influenza, postnasal drip , congestive heart failure, cardiomyopathy, GERD. Narrative Course IV was established, labs are drawn and sent, and the patient was placed on cardiac telemetry monitoring and continuous pulse oximetry monitoring. EKG was ordered and interpreted. Chest x-ray was obtained. Influenza screen and blood cultures were sent to lab. Chest x-ray reveals pulmonary fibrosis. Lab work is unremarkable. UA is negative. The patient is not hypoxic or tachycardic. He appears to have pulmonary fibrosis, the is unsure if he has had this diagnosis in the past. He has been worked up recently by Dr. Chavez, cardiology. He may need to follow-up with pulmonology. He will be placed on steroids and Levaquin. He is stable for outpatient follow-up. Diagnosis Primary Impression: Pulmonary fibrosis Additional Impression: Bronchitis Patient Instructions: General Instructions Additional Instructions: Medications as directed. Follow-up with your primary physician and/or pulmonology. Please provide the patient and his a copy of the lab results and x-ray results at discharge. Return if symptoms worsen or progress. Med/Other Pt SpecificInfo: Prescription(s) given Scripts Levofloxacin (Levaquin) 500 Mg Tablet 500 MG PO DAILY for Infection for 7 Days, #7 TAB 0 Refills Prov: Thai Jolly MD 07/15/17 Prednisone (Deltasone) 20 Mg Tab 40 MG PO DAILY for 5 Days, #10 TAB 0 Refills Prov: Thai Jolly MD 07/15/17 Disposition: 01 DISCHARGE HOME Condition: Stable Thai Jolly MD Jul 15, 2017 10:02
[2017-07-15] MEDS: RESP: ALBUTEROL 2.5 MG/IPRATROPIUM 0.5 MG NEB (SCH) INH (10:08)
[2017-07-15 10:27] VITALS: O2SAT 95
[2017-07-15 10:47] LABS: AUTOMATED NEUTROPHIL # 5.3 TH/MM3 (1.8-7.7); BASOPHIL # 0.1 TH/MM3 (0-0.2); BASOPHIL % 1.4 % (0.0-2.0); EOSINOPHIL # 0.5 TH/MM3 (0-0.4); EOSINOPHIL % 5.9 % (0.0-4.0); HEMO FLAGS DIFF FINAL; LYMPH % 21.3 % (9.0-44.0); LYMPHOCYTE # 1.9 TH/MM3 (1.0-4.8); MEAN CELL VOLUME 84.2 FL (80.0-100.0); MEAN CORPUSCULAR HEMOGLOBIN 27.8 PG (27.0-34.0); MONO % 11.2 % (0.0-8.0); NEUT % 60.2 % (16.0-70.0); PLATELET COUNT 300 TH/MM3 (150-450); RED BLOOD COUNT 5.23 MIL/MM3 (4.50-5.90); WHITE BLOOD COUNT 8.8 TH/MM3 (4.0-11.0)
[2017-07-15] MEDS ORDERED: DONE5TAB7 PO (10:47)
[2017-07-15] MEDS ORDERED: BUSP10TA PO (10:47)
[2017-07-15] MEDS ORDERED: ASPI-516 CHEW (10:47)
[2017-07-15] MEDS ORDERED: TRAM50TA PO (10:47)
[2017-07-15] MEDS ORDERED: LAMO100T PO (10:47)
[2017-07-15] MEDS ORDERED: TRAZ50TA12 PO (10:47)
[2017-07-15] MEDS ORDERED: NOVOLOGMXP SQ (10:47)
--- NOTE | 2017-07-15 11:05 | RADRPT ---
EXAM DATE/TIME: 07/15/2017 10:39 [facility] COMPARISON: CHEST SINGLE AP, September 26, 2016, 4:25. INDICATIONS : Shortness of breath. MEDICAL HISTORY : Diabetes mellitus type II. Hypertension Cardiovascular disease. SURGICAL HISTORY : Colon resection. ENCOUNTER: Initial ACUITY: 1 day PAIN SCORE: 0/10 LOCATION: Bilateral chest FINDINGS: A single view of the chest demonstrates interstitial changes. Heart borderline enlarged.. The cardio mediastinal contours are unremarkable. Osseous structures are intact. Left humeral prosthesis. CONCLUSION: Interstitial changes and likely pulmonary fibrosis. Ruben Terrell MD on July 15, 2017 at 11:02 Board Certified Radiologist. This report was verified electronically.
[2017-07-15 11:07] LABS: ALT (GPT) 28 U/L (12-78); ANION GAP 7 MEQ/L (5-15); AST (GOT) 37 U/L (15-37); BICARBONATE 27.2 MEQ/L (21.0-32.0); BLOOD UREA NITROGEN 27 MG/DL (7-18); CHLORIDE 100 MEQ/L (98-107); GLOMERULAR FILTRATION RATE 53 ML/MIN (>89); POTASSIUM 4.6 MEQ/L (3.5-5.1); SODIUM (NA) 134 MEQ/L (136-145)
[2017-07-15 11:10] LABS: ALKALINE PHOSPHATASE 104 U/L (45-117); TOTAL BILIRUBIN ADULT 0.5 MG/DL (0.2-1.0)
[2017-07-15] MEDS ORDERED: methylPREDNISolone SOD SUCC 125 MG/2 ML VIAL IV PUSH ONE (12:30)
[2017-07-15 12:41] VITALS: BP 152/70; PULSE 96; RESP 18; O2SAT 98
[2017-07-15 13:19] LABS: BLOOD, URINE NEG (NEG); COMMENT (UR) CULT NOT INDICATED; CULTURE IF INDICATED CULT NOT INDICATED; GLUCOSE,URINE 300 mg/dL (NEG); KETONE, URINE NEG (NEG); MUCUS URINE FEW /lpf (OCC); NITRITE,URINE NEG (NEG); PH, URINE 5.5 (5.0-8.5); URINE COLOR YELLOW (YELLW/STRAW)
[2017-07-15] MEDS ORDERED: LEVA500T33 PO (13:38)
[2017-07-15] MEDS ORDERED: PRED-503 PO (13:38)
--- NOTE | 2017-07-15 14:45 | EKG ---
Date Performed: 07/15/2017 Time Performed: 10:28:19 PTAGE: 77 years EKG: Sinus rhythm RIGHT BUNDLE BRANCH BLOCK ABNORMAL ECG PREVIOUS TRACING : 09/26/2016 04.59 DOCTOR: Lizandro Underwood Interpretating Date/Time 07/15/2017 14:44:46
== END 2017-07-15 14:18 | disposition home or self-care (01) ==
LOC: NEPC 09:42
DX: J84.10 Pulmonary fibrosis, unspecified (principal); J40 Bronchitis, not specified as acute or chronic; I45.10 Unspecified right bundle-branch block; F03.90 Unspecified dementia, unspecified severity, without behavioral disturbance, psychotic disturbance, mood disturbance, and anxiety; F32.9 Major depressive disorder, single episode, unspecified; I25.10 Atherosclerotic heart disease of native coronary artery without angina pectoris; E11.9 Type 2 diabetes mellitus without complications; I10 Essential (primary) hypertension; Z79.82 Long term (current) use of aspirin
CPT/HCPCS: 71010; 80053; 81001; 83605; 83880; 85025; 87040; 87804; 93005; 94640; 94664; 96361; 96374; 99285; J2930; J7040